=== PATIENT | male | born 1955 | race American Indian/Alaskan Native ===

== ENCOUNTER 2024-05-15 01:02 | Inpatient (IN) | payer MEDICARE, MEDICAID, SELFPAY ==
[2024-05-15] VITALS (56 sets, daily range): BP systolic 76–122; BP diastolic 47–71; PULSE 86–129; RESP 13–21; TEMP 36.6–37.2; O2SAT 91–100; BMI 32.7; BMI 18.4
--- NOTE | 2024-05-15 01:02 | ED_ITS ---
HPI - General Adult General Chief complaint: Skin/Abscess/Foreign Body Stated complaint: painful bedsores Time Seen by Provider: 05/15/24 01:02 Source: patient, RN notes reviewed and old records reviewed Mode of arrival: EMS Limitations: no limitations History of Present Illness HPI narrative: 69-year-old male no reported medical history states he has not seen a physician since the presents with complaint of painful sores on his buttocks and lower back. Patient is cachectic with what appears to be contractures of his lower extremities. States he has not been out of bed for a very long time states his son changes of brief for urination and lift him up and moves him to have bowel movements. ?Patient states he has not had solids and several days has not been interested has been having 1 or 2 bottles of Gatorade each day.? States he was still making urine. Patient states he comes in today because his skin is coming off on his back and buttocks in his painful. He expresses multiple times that he was told his son to leave him alone because he wishes to at home. Patient states he does not have any breathing difficulties has not been vomiting. No reports of new diarrhea or constipation. His main complaint is pain in his sacral area and back. Patient states he has not on any medications. Denies any allergies. Use to smoke. Does not drink any alcohol, no recreational drugs. Lives at home has a son that lives with him. EMS states the house was very dirty and a lot of disarray they will reach out to a PS but also [facility]. They state they saw son at the house but no other family members. Related Data Previous Rx's Medication Instructions Recorded lorazepam 2 mg/mL oral concentrate 0.5 mg (0.25 mL) PO Q1HR PRN 05/23/24 (Lorazepam Intensol) Anxiety #30 mL morphine concentrate 10 mg/0.5 mL 10 mg (0.5 mL) sublingual Q1H PRN 05/23/24 oral syringe (FOR ORAL USE ONLY) Pain, Mild (1-3) #100 ea Allergies Allergy/AdvReac Type Severity Reaction Status Date / Time No Known Drug Allergies Allergy Verified 05/16/24 11:34 Review of Systems Review of Systems ROS Unobtainable: All systems reviewed & are unremarkable except as noted in HPI and below Patient History Social History household members: children Smoking Status: Former smoker Exam Narrative Exam Narrative: GEN: Cachectic male, alert and oriented, patient appears to be in mild distress. Clear speech. HEENT: Atraumatic, pupils are equal round reactive to light, extraocular movements are intact, nares are clear, there is no conjunctival pallor. Throat is clear without any exudates, erythema, tonsillar enlargement or uvular deviation, patient has a dry mucous membranes and tongue. HEART: Regular rate and rhythm without murmur, clicks, rubs. pulses are equal in upper and lower extremities LUNGS:Lungs clear to auscultation, no wheezes, rales, crackles, chest moves symmetrically, no tachypnea ABD:bowel sounds normal, soft, nondistended. Non-tender, no guarding, rebound, rigidity, no masses noted, no hepatosplenomegaly :No CVA tenderness MSCL: Extremities are nontender, atrophy bilateral lower extremities with what appears to be contractures bilateral lower extremities. Patient has full range of motion of upper extremities. NEURO:CN 2-12 intact, sensation normal SKIN: Patient has some small areas of breakdown on the right flank 1 is oozing blood, there is a large DKA tube over the sacral region and perineum. Patient has quite a bit of dried stool in skin his torso back in perineal area. There is a small amount in his hair as well lower extremities. Initial Vital Signs Initial Vital Signs: Vital Signs Temperature 98.7 F 05/15/24 01:04 Pulse Rate 100 H 05/15/24 01:04 Respiratory Rate 20 05/15/24 01:04 Blood Pressure 78/55 L 05/15/24 01:04 Pulse Oximetry 96 05/15/24 01:04 Oxygen Delivery Method Room Air 05/15/24 01:04 Course Orders Ordered: Discontinued Medications Acetaminophen (Acetaminophen 325 Mg Tablet) 650 mg PO Q6H PRN PRN Reason: Fever/Mild Pain (1-3) Last Admin: 05/17/24 22:02 Dose: 650 mg Documented By: Aspirin (Aspirin 81 Mg Chew Tab) 324 mg PO NOW ONE Stop: 05/15/24 05:36 Last Admin: 05/15/24 05:40 Dose: 324 mg Documented By: Dextrose (Dextrose 50 % In Water 25 Gm/50 Ml Syringe) 12.5 gm IV PRN PRN PRN Reason: HYPOGLYCEMIA Last Admin: 05/18/24 08:03 Dose: 12.5 gm Documented By: SKYE Enoxaparin Sodium (Enoxaparin 40 Mg/0.4 Ml Syringe) 40 mg SUBCUT DAILY [facility] Last Admin: 05/20/24 08:39 Dose: 40 mg Documented By: Admin: 05/19/24 09:52 Dose: 40 mg Documented By: Admin: 05/18/24 09:41 Dose: 40 mg Documented By: Admin: 05/17/24 09:03 Dose: 40 mg Documented By: Admin: 05/16/24 08:36 Dose: 40 mg Documented By: Admin: 05/15/24 11:39 Dose: 40 mg Documented By: ANDRIY Fentanyl (Fentanyl 100 Mcg/2 Ml Inj) 50 mcg IV NOW ONE Stop: 05/15/24 01:12 Last Admin: 05/15/24 01:32 Dose: 50 mcg Documented By: MR Heparin Sodium (Porcine) (Heparin 5,000 Unit/Ml Vial) 3,000 unit 60 unit/kg (3000 unit) IV NOW ONE Stop: 05/15/24 04:48 Last Admin: 05/15/24 04:58 Dose: 3,000 unit Documented By: MR Hydromorphone HCl (Hydromorphone 0.5 Mg Inj) 0.5 mg IV Q2H PRN PRN Reason: Pain, Moderate (4-6) Last Admin: 05/22/24 09:16 Dose: 0.5 mg Documented By: Admin: 05/22/24 00:16 Dose: 0.5 mg Documented By: Admin: 05/21/24 07:49 Dose: 0.5 mg Documented By: Admin: 05/20/24 05:29 Dose: 0.5 mg Documented By: Admin: 05/20/24 02:58 Dose: 0.5 mg Documented By: Admin: 05/19/24 15:46 Dose: 0.5 mg Documented By: Admin: 05/19/24 14:15 Dose: 0.5 mg Documented By: Admin: 05/19/24 11:12 Dose: 0.5 mg Documented By: Admin: 05/18/24 22:29 Dose: 0.5 mg Documented By: Admin: 05/18/24 16:14 Dose: 0.5 mg Documented By: Admin: 05/17/24 08:38 Dose: 0.5 mg Documented By: Admin: 05/16/24 07:35 Dose: 0.5 mg Documented By: Admin: 05/15/24 20:07 Dose: 0.5 mg Documented By: Admin: 05/15/24 18:26 Dose: 0.5 mg Documented By: Admin: 05/15/24 14:05 Dose: 0.5 mg Documented By: Admin: 05/15/24 11:39 Dose: 0.5 mg Documented By: ANDRIY Hydromorphone HCl (Hydromorphone 1 Mg Inj) 1 mg IV Q3H PRN PRN Reason: Pain, Severe (7-10) Last Admin: 05/17/24 05:25 Dose: 1 mg Documented By: Admin: 05/17/24 02:46 Dose: 1 mg Documented By: Admin: 05/16/24 23:16 Dose: 1 mg Documented By: Admin: 05/16/24 19:50 Dose: 1 mg Documented By: Admin: 05/16/24 16:39 Dose: 1 mg Documented By: Admin: 05/16/24 13:16 Dose: 1 mg Documented By: Admin: 05/16/24 09:43 Dose: 1 mg Documented By: ANDRIY Hydromorphone HCl (Hydromorphone 1 Mg Inj) 1 mg IV Q2HR PRN PRN Reason: Pain, Moderate (4-6) Last Admin: 05/18/24 04:07 Dose: 1 mg Documented By: Admin: 05/17/24 23:14 Dose: 1 mg Documented By: Admin: 05/17/24 18:49 Dose: 1 mg Documented By: Admin: 05/17/24 17:01 Dose: 1 mg Documented By: Admin: 05/17/24 11:36 Dose: 1 mg Documented By: SONNY Sodium Chloride (Normal Saline 0.9%) 1,000 mls @ 1,000 mls/hr IV BOLUS ONE Stop: 05/15/24 02:10 Last Infusion: 05/15/24 02:46 Dose: Infused Documented By: Admin: 05/15/24 01:26 Dose: 1,000 mls/hr Documented By: MR Piperacillin Sod/Tazobactam (Sod 4.5 gm/ Sodium Chloride) 100 mls @ 200 mls/hr IV NOW ONE Stop: 05/15/24 01:12 Last Infusion: 05/15/24 02:23 Dose: Infused Documented By: Admin: 05/15/24 01:32 Dose: 200 mls/hr Documented By: MR Vancomycin HCl (Vancomycin) 1,250 mg in 250 mls @ 250 mls/hr IV NOW ONE Stop: 05/15/24 02:15 Last Infusion: 05/15/24 03:52 Dose: Infused Documented By: Admin: 05/15/24 02:45 Dose: 250 mls/hr Documented By: MR Sodium Chloride (Normal Saline 0.9%) 1,000 mls @ 1,000 mls/hr IV BOLUS ONE Stop: 05/15/24 03:42 Last Infusion: 05/15/24 03:48 Dose: Infused Documented By: Admin: 05/15/24 02:52 Dose: 1,000 mls/hr Documented By: MR Heparin Sodium/Dextrose (Heparin Drip) 25,000 unit in 500 mls @ 10.17 mls/hr IV CONT JOSUE; Protocol Last Titration: 05/15/24 07:41 Dose: Infused Documented By: RB Co-signed By: SILVER Admin: 05/15/24 04:58 Dose: 9.5 units/kg/hr, 10.17 mls/hr Documented By: Co-signed By: HNG Sodium Chloride (Normal Saline 0.9%) 1,000 mls @ 150 mls/hr IV CONT JOSUE Last Infusion: 05/15/24 14:05 Dose: Infused Documented By: Admin: 05/15/24 05:41 Dose: 150 mls/hr Documented By: MR Piperacillin Sod/Tazobactam (Sod 3.375 gm/ Sodium Chloride) 100 mls @ 25 mls/hr IV Q8H JOSUE Last Admin: 05/18/24 11:24 Dose: 25 mls/hr Documented By: Infusion: 05/18/24 10:19 Dose: Infused Documented By: Admin: 05/18/24 04:07 Dose: 25 mls/hr Documented By: Infusion: 05/18/24 00:35 Dose: Infused Documented By: Admin: 05/17/24 20:35 Dose: 25 mls/hr Documented By: Infusion: 05/17/24 17:35 Dose: Infused Documented By: Admin: 05/17/24 13:28 Dose: 25 mls/hr Documented By: Infusion: 05/17/24 12:08 Dose: Infused Documented By: Infusion: 05/17/24 08:35 Dose: 0 mls/hr Documented By: Infusion: 05/17/24 07:30 Dose: 0 mls/hr Documented By: Admin: 05/17/24 04:40 Dose: 25 mls/hr Documented By: Infusion: 05/17/24 04:16 Dose: Infused Documented By: Admin: 05/16/24 19:51 Dose: 25 mls/hr Documented By: Infusion: 05/16/24 16:34 Dose: Infused Documented By: Admin: 05/16/24 12:18 Dose: 25 mls/hr Documented By: Infusion: 05/16/24 08:32 Dose: Infused Documented By: Admin: 05/16/24 04:16 Dose: 25 mls/hr Documented By: Infusion: 05/16/24 00:36 Dose: Infused Documented By: Admin: 05/15/24 20:05 Dose: 25 mls/hr Documented By: Infusion: 05/15/24 17:36 Dose: Infused Documented By: Admin: 05/15/24 11:36 Dose: 25 mls/hr Documented By: ANDRIY Sodium Chloride (Normal Saline 0.45%) 1,000 mls @ 75 mls/hr IV CONT JOSUE Last Infusion: 05/18/24 14:41 Dose: 75 mls/hr Documented By: Admin: 05/18/24 13:52 Dose: 125 mls/hr Documented By: YAAbbie Infusion: 05/18/24 13:52 Dose: Infused Documented By: Admin: 05/18/24 05:54 Dose: 125 mls/hr Documented By: Infusion: 05/18/24 05:53 Dose: Infused Documented By: Admin: 05/17/24 21:53 Dose: 125 mls/hr Documented By: Infusion: 05/17/24 17:03 Dose: Infused Documented By: Admin: 05/17/24 09:03 Dose: 125 mls/hr Documented By: Infusion: 05/16/24 22:35 Dose: Infused Documented By: Admin: 05/16/24 14:35 Dose: 125 mls/hr Documented By: Infusion: 05/16/24 14:35 Dose: Infused Documented By: Admin: 05/16/24 07:00 Dose: 125 mls/hr Documented By: Infusion: 05/16/24 06:33 Dose: Infused Documented By: Admin: 05/15/24 22:33 Dose: 125 mls/hr Documented By: Infusion: 05/15/24 22:02 Dose: Infused Documented By: Infusion: 05/15/24 17:35 Dose: 125 mls/hr Documented By: Admin: 05/15/24 11:39 Dose: 75 mls/hr Documented By: ANDRIY Vancomycin HCl 1,000 mg/ (Sodium Chloride) 250 mls @ 250 mls/hr IV Q12H [facility] Last Infusion: 05/17/24 04:43 Dose: Infused Documented By: Admin: 05/17/24 02:46 Dose: 250 mls/hr Documented By: Infusion: 05/16/24 17:24 Dose: Infused Documented By: Admin: 05/16/24 15:52 Dose: 250 mls/hr Documented By: Infusion: 05/16/24 04:19 Dose: Infused Documented By: Admin: 05/16/24 03:15 Dose: 250 mls/hr Documented By: Infusion: 05/15/24 17:36 Dose: Infused Documented By: Admin: 05/15/24 15:25 Dose: 250 mls/hr Documented By: CR Sodium Chloride (Normal Saline 0.45%) 1,000 mls @ 125 mls/hr IV CONT JOSUE Last Admin: 05/15/24 17:42 Dose: Not Given Documented By: ANDRIY POTASSIUM CHLORIDE IN WATER (Potassium Cl 10 Meq/100 Ml Dona) 10 meq in 100 mls @ 100 mls/hr IV Q1H [facility] Stop: 05/16/24 12:59 Last Infusion: 05/16/24 14:56 Dose: Infused Documented By: Admin: 05/16/24 13:48 Dose: 100 mls/hr Documented By: Infusion: 05/16/24 13:37 Dose: Infused Documented By: Admin: 05/16/24 12:37 Dose: 100 mls/hr Documented By: Infusion: 05/16/24 12:27 Dose: Infused Documented By: Admin: 05/16/24 11:27 Dose: 100 mls/hr Documented By: Infusion: 05/16/24 11:17 Dose: Infused Documented By: Admin: 05/16/24 10:17 Dose: 100 mls/hr Documented By: Infusion: 05/16/24 09:31 Dose: Infused Documented By: Admin: 05/16/24 08:31 Dose: 100 mls/hr Documented By: Infusion: 05/16/24 08:31 Dose: Infused Documented By: Admin: 05/16/24 07:35 Dose: 100 mls/hr Documented By: ANDRIY Magnesium Sulfate (Magnesium Sulfate) 2 gm in 50 mls @ 25 mls/hr IV NOW ONE Stop: 05/16/24 15:59 Last Infusion: 05/16/24 17:23 Dose: Infused Documented By: CATHI Co-signed By: SO Admin: 05/16/24 14:59 Dose: 25 mls/hr Documented By: CATHI Co-signed By: SO Dextrose (D10w) 100 mls @ 999 mls/hr IV PRN PRN PRN Reason: Hypoglycemia POTASSIUM CHLORIDE IN WATER (Potassium Cl 10 Meq/100 Ml Dona) 10 meq in 100 mls @ 100 mls/hr IV Q1H J[facility] Stop: 05/18/24 14:59 Last Infusion: 05/18/24 14:54 Dose: Infused Documented By: Admin: 05/18/24 13:53 Dose: 100 mls/hr Documented By: Infusion: 05/18/24 13:53 Dose: Infused Documented By: Admin: 05/18/24 13:26 Dose: 100 mls/hr Documented By: Infusion: 05/18/24 12:59 Dose: Infused Documented By: Admin: 05/18/24 11:59 Dose: 100 mls/hr Documented By: Infusion: 05/18/24 11:59 Dose: Infused Documented By: Admin: 05/18/24 11:01 Dose: 100 mls/hr Documented By: SKYE Piperacillin Sod/Tazobactam (Sod 4.5 gm/ Sodium Chloride) 100 mls @ 200 mls/hr IV Q6H JOS[facility] Last Infusion: 05/20/24 12:10 Dose: Infused Documented By: Admin: 05/20/24 11:18 Dose: 200 mls/hr Documented By: Infusion: 05/20/24 04:21 Dose: Infused Documented By: Admin: 05/20/24 02:59 Dose: 200 mls/hr Documented By: Infusion: 05/19/24 21:46 Dose: Infused Documented By: Admin: 05/19/24 21:16 Dose: 200 mls/hr Documented By: Infusion: 05/19/24 16:58 Dose: Infused Documented By: Admin: 05/19/24 16:09 Dose: 200 mls/hr Documented By: Infusion: 05/19/24 10:54 Dose: Infused Documented By: Admin: 05/19/24 09:57 Dose: 200 mls/hr Documented By: Infusion: 05/19/24 03:35 Dose: Infused Documented By: Admin: 05/19/24 03:02 Dose: 200 mls/hr Documented By: Infusion: 05/18/24 21:56 Dose: Infused Documented By: Admin: 05/18/24 21:26 Dose: 200 mls/hr Documented By: Infusion: 05/18/24 17:09 Dose: Infused Documented By: Admin: 05/18/24 14:50 Dose: 200 mls/hr Documented By: SKYE Dextrose/Sodium Chloride (Dextrose 5%-0.9% Ns) 1,000 mls @ 75 mls/hr IV CONT JOSUE Last Admin: 05/20/24 04:10 Dose: 75 mls/hr Documented By: Infusion: 05/19/24 20:19 Dose: Infused Documented By: Admin: 05/19/24 06:59 Dose: 75 mls/hr Documented By: Infusion: 05/19/24 06:59 Dose: Infused Documented By: Admin: 05/18/24 18:01 Dose: 75 mls/hr Documented By: SKYE Potassium Phosphate 45 mmol/ (Sodium Chloride) 515 mls @ 85.833 mls/hr IV NOW ONE Stop: 05/19/24 10:51 Last Admin: 05/19/24 11:45 Dose: 85.833 mls/hr Documented By: LORNA Magnesium Sulfate (Magnesium Sulfate) 2 gm in 50 mls @ 25 mls/hr IV NOW ONE Stop: 05/19/24 12:49 Last Infusion: 05/19/24 13:42 Dose: Infused Documented By: SKYE Co-signed By: JAMES Admin: 05/19/24 11:42 Dose: 25 mls/hr Documented By: LORNA Co-signed By: SKYE Potassium Phosphate 15 mmol/ (Sodium Chloride) 255 mls @ 127.5 mls/hr IV NOW ONE Stop: 05/20/24 11:14 Last Infusion: 05/20/24 12:11 Dose: 127.5 mls/hr Documented By: Admin: 05/20/24 10:31 Dose: 127.5 mls/hr Documented By: EDWARD POTASSIUM CHLORIDE IN WATER (Potassium Cl 10 Meq/100 Ml Dona) 10 meq in 100 mls @ 100 mls/hr IV Q1H [facility] Stop: 05/20/24 13:14 Last Admin: 05/20/24 13:02 Dose: Not Given Documented By: Admin: 05/20/24 13:02 Dose: Not Given Documented By: Admin: 05/20/24 13:02 Dose: Not Given Documented By: SKYE Lorazepam (Lorazepam 2 Mg/Ml Inj) 0.5 mg IV Q4HR PRN PRN Reason: Anxiety Last Admin: 05/21/24 23:21 Dose: 0.5 mg Documented By: Admin: 05/21/24 18:35 Dose: 0.5 mg Documented By: Admin: 05/21/24 06:33 Dose: 0.5 mg Documented By: Admin: 05/20/24 06:25 Dose: 0.5 mg Documented By: Admin: 05/20/24 02:45 Dose: 0.5 mg Documented By: Admin: 05/19/24 14:15 Dose: 0.5 mg Documented By: Admin: 05/15/24 22:34 Dose: 0.5 mg Documented By: MAYNOR Lorazepam (Lorazepam 2 Mg/Ml Oral Dona) 0.5 mg PO Q1HR PRN PRN Reason: Anxiety Lorazepam (Lorazepam 2 Mg/Ml Oral Dona) 0.5 mg PO Q4HR JOS[facility] Last Admin: 05/23/24 12:28 Dose: 0.5 mg Documented By: Admin: 05/23/24 08:45 Dose: 0.5 mg Documented By: Admin: 05/23/24 04:07 Dose: 0.5 mg Documented By: ANDRIY(2) Admin: 05/23/24 00:22 Dose: 0.5 mg Documented By: ANDRIY(2) Admin: 05/22/24 20:56 Dose: 0.5 mg Documented By: Admin: 05/22/24 17:17 Dose: 0.5 mg Documented By: Admin: 05/22/24 14:56 Dose: Not Given Documented By: JANET Magnesium Chloride (Magnesium Chloride 64 Mg Tablet) 128 mg PO NOW ONE Stop: 05/16/24 09:01 Last Admin: 05/16/24 08:42 Dose: Not Given Documented By: ANDRIY Morphine Sulfate (Morphine 10 Mg/0.5 Ml Oral Syringe) 10 mg SL Q1H PRN PRN Reason: Pain, Mild (1-3) Last Admin: 05/22/24 10:31 Dose: 10 mg Documented By: Admin: 05/22/24 09:10 Dose: 10 mg Documented By: Admin: 05/21/24 23:37 Dose: 10 mg Documented By: Admin: 05/21/24 22:41 Dose: 10 mg Documented By: Admin: 05/21/24 16:01 Dose: 10 mg Documented By: Admin: 05/21/24 14:17 Dose: 10 mg Documented By: Admin: 05/21/24 05:54 Dose: 10 mg Documented By: Admin: 05/21/24 00:56 Dose: 10 mg Documented By: Admin: 05/20/24 22:04 Dose: 10 mg Documented By: Admin: 05/20/24 20:42 Dose: 10 mg Documented By: Admin: 05/20/24 16:21 Dose: 10 mg Documented By: Admin: 05/20/24 11:10 Dose: 10 mg Documented By: EDWARD Morphine Sulfate (Morphine 10 Mg/0.5 Ml Oral Syringe) 15 mg PO Q4HR [facility] Last Admin: 05/23/24 12:27 Dose: 15 mg Documented By: Admin: 05/23/24 08:45 Dose: 15 mg Documented By: Admin: 05/23/24 04:07 Dose: 15 mg Documented By: ANDRIY(2) Admin: 05/23/24 00:21 Dose: 15 mg Documented By: ANDRIY(2) Admin: 05/22/24 20:56 Dose: 15 mg Documented By: Admin: 05/22/24 17:16 Dose: 15 mg Documented By: Admin: 05/22/24 14:12 Dose: 15 mg Documented By: JANET Naloxone HCl (Naloxone 0.4 Mg/Ml Vial) 0.2 mg IV Q2MIN PRN PRN Reason: Opiate Reversal Ondansetron HCl (Ondansetron 4 Mg/2 Ml Inj) 4 mg IV NOW ONE Stop: 05/15/24 01:12 Last Admin: 05/15/24 01:32 Dose: 4 mg Documented By: Ondansetron HCl (Ondansetron 4 Mg/2 Ml Inj) 4 mg IV Q8HR PRN PRN Reason: Nausea And Vomiting Oxycodone HCl (Oxycodone Ir 5 Mg Tablet) 5 mg PO Q3H PRN PRN Reason: Pain, Moderate (4-6) Last Admin: 05/17/24 22:02 Dose: 5 mg Documented By: Oxycodone HCl (Oxycodone Ir 5 Mg Tablet) 2.5 mg PO Q3H PRN PRN Reason: Pain, Moderate (4-6) Oxycodone HCl (Oxycodone Ir 5 Mg Tablet) 5 mg PO Q4HR PRN PRN Reason: Pain, Severe (7-10) Pantoprazole Sodium (Pantoprazole 40 Mg Vial) 40 mg IV BID [facility] Last Admin: 05/23/24 08:45 Dose: 40 mg Documented By: Admin: 05/22/24 20:57 Dose: 40 mg Documented By: Admin: 05/22/24 10:31 Dose: 40 mg Documented By: Admin: 05/21/24 21:37 Dose: 40 mg Documented By: Admin: 05/21/24 07:49 Dose: 40 mg Documented By: Admin: 05/20/24 20:42 Dose: 40 mg Documented By: Admin: 05/20/24 08:39 Dose: 40 mg Documented By: Admin: 05/19/24 21:16 Dose: 40 mg Documented By: Admin: 05/19/24 09:52 Dose: 40 mg Documented By: SKYE Potassium Chloride (Potassium Chloride 20 Meq Tab) 40 meq PO Q6H [facility] Stop: 05/17/24 13:31 Last Admin: 05/17/24 15:35 Dose: Not Given Documented By: Admin: 05/17/24 09:11 Dose: 40 meq Documented By: SONNY Potassium Chloride (Potassium Chloride 20 Meq Tab) 40 meq PO Q6H [facility] Stop: 05/17/24 15:16 Last Admin: 05/17/24 15:41 Dose: Not Given Documented By: CS Potassium Chloride (Potassium Chloride 20 Meq Tab) 40 meq PO Q6H [facility] Stop: 05/18/24 15:31 Last Admin: 05/18/24 10:20 Dose: Not Given Documented By: SKYE Scopolamine (Scopolamine 1 Patch) 1 patch TOP Q72H PRN PRN Reason: Secretions Sodium Chloride (Sodium Chloride 0.9% Flush) 10 ml IV PRN PRN PRN Reason: Flush Sodium Chloride (Sodium Chloride 0.9% Flush) 10 ml IV BID [facility] Last Admin: 05/23/24 08:46 Dose: 10 ml Documented By: LDV Vancomycin HCl (Vancomycin Per Pharmacy) 1 request MISC NOW PRN PRN Reason: sacral decubitus infection Vancomycin HCl (Vancomycin Trough) 1 request MISC 1430 ONE Stop: 05/16/24 14:31 Last Admin: 05/16/24 14:59 Dose: Not Given Documented By: TLS Vancomycin HCl (Vancomycin Peak) 1 request MISC 1700 ONE Stop: 05/16/24 17:01 Last Admin: 05/16/24 18:56 Dose: Not Given Documented By: CLP Vital Signs Vital signs: Vital Signs - 8 hr 05/15/24 01:04 05/15/24 01:04 05/15/24 01:04 Temperature 98.7 F Pulse Rate 100 H 100 H Respiratory Rate 20 Blood Pressure 78/55 L 76/54 L Pulse Oximetry 96 95 Oxygen Delivery Method Room Air 05/15/24 01:05 05/15/24 01:05 05/15/24 01:30 Temperature Pulse Rate 100 H Respiratory Rate Blood Pressure 78/55 L 84/58 L Pulse Oximetry 96 Oxygen Delivery Method 05/15/24 01:30 05/15/24 02:19 05/15/24 02:19 Temperature Pulse Rate 98 H 97 H Respiratory Rate 18 18 Blood Pressure 84/50 L Pulse Oximetry 96 97 Oxygen Delivery Method 05/15/24 02:20 05/15/24 02:38 05/15/24 02:39 Temperature Pulse Rate 94 H 96 H Respiratory Rate 17 Blood Pressure 104/59 L Pulse Oximetry 98 98 Oxygen Delivery Method 05/15/24 02:39 05/15/24 02:40 05/15/24 02:50 Temperature Pulse Rate 108 H 96 H 94 H Respiratory Rate 16 16 15 Blood Pressure Pulse Oximetry 98 98 98 Oxygen Delivery Method 05/15/24 03:00 05/15/24 03:00 05/15/24 03:10 Temperature Pulse Rate 97 H 95 H Respiratory Rate 17 17 Blood Pressure 115/69 Pulse Oximetry 99 99 Oxygen Delivery Method 05/15/24 03:20 05/15/24 03:30 05/15/24 03:30 Temperature Pulse Rate 96 H 94 H Respiratory Rate 19 17 Blood Pressure 118/67 Pulse Oximetry 99 98 Oxygen Delivery Method 05/15/24 03:40 05/15/24 03:50 05/15/24 04:00 Temperature Pulse Rate 129 H 94 H Respiratory Rate 19 19 Blood Pressure 122/71 Pulse Oximetry 98 100 Oxygen Delivery Method 05/15/24 04:00 05/15/24 04:10 05/15/24 04:28 Temperature Pulse Rate 127 H 98 H 96 H Respiratory Rate 18 14 Blood Pressure Pulse Oximetry 100 99 98 Oxygen Delivery Method 05/15/24 04:29 05/15/24 04:29 05/15/24 04:30 Temperature Pulse Rate 99 H 96 H Respiratory Rate 14 14 Blood Pressure 101/64 Pulse Oximetry 98 98 Oxygen Delivery Method 05/15/24 04:40 Temperature Pulse Rate 100 H Respiratory Rate 14 Blood Pressure Pulse Oximetry 97 Oxygen Delivery Method Medical Decision Making Lab Data 05/20/24 06:17 05/20/24 06:17 Labs: Lab Results 05/15/24 05/15/24 05/15/24 Range/Units 01:20 03:25 03:46 WBC 9.6 (4.5-11.0) X10^3/uL RBC 2.95 L (4.5-5.9) X10^6/uL Hgb 9.8 L (13.5-17.5) g/dL Hct 28.5 L (41-53) % MCV 96.8 (80-100) fL MCH 33.2 (26-34) PG MCHC 34.3 (30-36) % RDW 14.9 H (11.6-14.8) % Plt Count 211 (150-400) X10^3/uL Neut % (Auto) 76.5 H (50-75) % Lymph % (Auto) 19.1 L (25-40) % [place] % (Auto) 3.5 (3-14) % Eos % (Auto) 0.1 L (2-4) % Baso % (Auto) 0.8 (0-2) % Neut # (Auto) 7400 H (5869-9976) /uL Lymph # (Auto) 1800 (2213-7570) /uL [place] # (Auto) 300 (0-900) /uL Eos # (Auto) 0 (0-450) /uL Baso # (Auto) 100 (0-100) /uL APTT (25.1-36.5) SECONDS Sodium 138 (137-145) mmol/L Potassium 3.7 (3.4-5.1) mmol/L Chloride 105 (98-107) mmol/L Carbon Dioxide 25 (22-32) mmol/L BUN 18 (9-20) mg/dL Creatinine 0.72 (0.66-1.25) mg/dL Estimated GFR > 60 (>60) mL/min BUN/Creatinine Ratio 25.0 H (6-22) Glucose 104 (80-110) mg/dL Lactate 3.0 H 2.0 (0.7-2.1) mmol/L Calcium 8.5 (8.4-10.2) mg/dL Iron 67 (49-181) ug/dL TIBC 124 L (261-462) ug/dL % Saturation 54 H (20-50) % Transferrin 90 L (206-381) mg/dL Ferritin 152 (18-464) ng/mL Total Bilirubin 1.5 H (0.2-1.3) mg/dL AST 45 (17-59) IU/L ALT 31 (<50) IU/L Alkaline Phosphatase 123 (38-126) U/L Total Creatine Kinase 202 H (55-170) U/L Troponin I 0.308 H* 0.318 H* (0.01-0.034) ng/mL Total Protein 7.0 (6.3-8.2) g/dL Albumin 3.2 L (3.5-5.0) g/dL Globulin 3.8 (1.7-4.1) g/dL Albumin/Globulin Ratio 0.8 L (1.0-2.8) Prealbumin 4.0 L (17.6-36.0) mg/dL Prostate Specific Ag 0.708 (0.10-4.00) ng/mL Vitamin B12 986 H (239-931) pg/mL Folate 2.4 L (2.76-20.0) ng/mL Procalcitonin 0.234 (<0.5) ng/mL TSH 3.90 (0.47-4.68) uIU/mL Urine Color Urine Appearance Urine pH (4.5-8.0) Ur Specific [place] (1.000-1.035) Urine Protein (Negative) Urine Glucose (UA) (Negative) g/dL Urine Ketones (NEGATIVE) Urine Occult Blood (Negative) Urine Nitrate (Negative) Urine Bilirubin (NEGATIVE) Ur Bilirubin Confirm (Negative) Urine Urobilinogen (0.2) E.U./dL Ur Leukocyte Esterase (NEGATIVE) Urine RBC (0-5/HPF) Urine WBC (0-5/HPF) Ur Squamous Epith Cells (0-5/HPF) Other Crystals Urine Bacteria (None) Ur Culture Indicated? Vol Urine Centrifuged 05/15/24 05/15/24 Range/Units 04:12 05:00 WBC (4.5-11.0) X10^3/uL RBC (4.5-5.9) X10^6/uL Hgb (13.5-17.5) g/dL Hct (41-53) % MCV (80-100) fL MCH (26-34) PG MCHC (30-36) % RDW (11.6-14.8) % Plt Count (150-400) X10^3/uL Neut % (Auto) (50-75) % Lymph % (Auto) (25-40) % [place] % (Auto) (3-14) % Eos % (Auto) (2-4) % Baso % (Auto) (0-2) % Neut # (Auto) (8618-0622) /uL Lymph # (Auto) (9459-8945) /uL [place] # (Auto) (0-900) /uL Eos # (Auto) (0-450) /uL Baso # (Auto) (0-100) /uL APTT 31 (25.1-36.5) SECONDS Sodium (137-145) mmol/L Potassium (3.4-5.1) mmol/L Chloride (98-107) mmol/L Carbon Dioxide (22-32) mmol/L BUN (9-20) mg/dL Creatinine (0.66-1.25) mg/dL Estimated GFR (>60) mL/min BUN/Creatinine Ratio (6-22) Glucose (80-110) mg/dL Lactate (0.7-2.1) mmol/L Calcium (8.4-10.2) mg/dL Iron (49-181) ug/dL TIBC (261-462) ug/dL % Saturation (20-50) % Transferrin (206-381) mg/dL Ferritin (18-464) ng/mL Total Bilirubin (0.2-1.3) mg/dL AST (17-59) IU/L ALT (<50) IU/L Alkaline Phosphatase (38-126) U/L Total Creatine Kinase (55-170) U/L Troponin I (0.01-0.034) ng/mL Total Protein (6.3-8.2) g/dL Albumin (3.5-5.0) g/dL Globulin (1.7-4.1) g/dL Albumin/Globulin Ratio (1.0-2.8) Prealbumin (17.6-36.0) mg/dL Prostate Specific Ag (0.10-4.00) ng/mL Vitamin B12 (239-931) pg/mL Folate (2.76-20.0) ng/mL Procalcitonin (<0.5) ng/mL TSH (0.47-4.68) uIU/mL Urine Color Dark yellow Urine Appearance Cloudy Urine pH 5.5 (4.5-8.0) Ur Specific [place] 1.020 (1.000-1.035) Urine Protein 1+ H (Negative) Urine Glucose (UA) Negative (Negative) g/dL Urine Ketones Negative (NEGATIVE) Urine Occult Blood 3+ H (Negative) Urine Nitrate Positive H (Negative) Urine Bilirubin 1+ H (NEGATIVE) Ur Bilirubin Confirm Positive H (Negative) Urine Urobilinogen 1.0 (0.2) E.U./dL Ur Leukocyte Esterase 2+ H (NEGATIVE) Urine RBC 30-100/hpf H (0-5/HPF) Urine WBC >100/hpf H (0-5/HPF) Ur Squamous Epith Cells 0-1 /hpf (0-5/HPF) Other Crystals Bilirubin Urine Bacteria Many (>30) H (None) Ur Culture Indicated? Specimen cultured Vol Urine Centrifuged 10ml (spun) ECG Data Attestation: I personally reviewed and interpreted this ECG as follows: Interpretation: Undetermined rhythm but appears regular, rate of 111 OK 120 QRS is 62 QTC of 625 although there maybe some this interpretation as patient has appears to be quite a bit of artifact. Multiple attempts at EKG. [facility] Narrative Medical decision making narrative: 69-year-old male no reported medical issues but has not seen a doctor in several decades patient indicates that he has not walked in quite some time and has what appears to be contractures of his lower extremities he appears cachectic, quite dehydrated and presents today with complaint of his skin sloughing off from his decubitus area and causing pain. Per EMS the room with the patient was in as well as the house is in quite a bit of disarray and unclean. Patient was hypotensive, tachycardic has not been hypoxic is afebrile suspect potential developing infection in his TCU but also significant dehydration based on his exam as well as malnutrition. Patient indicates that he would be DNR/DNI but he was okay with labs, imaging and workup as well as antibiotics and fluids. He was alert, appears to be able to give appropriate history and states his son does help him but he has also been telling his son not to help him to keep him away so he can at home. We discussed there are options with the home health care has been individuals can be made comfortable as well as being kept clean for end of life care within their own home he expresses that he didn't realize that. APS contacted by myself at [phone] for report.? Left voicemail with reporting service for patient.? Labs labs show a normal white count hemoglobin of 9.8 platelets of 211. Electrolytes are appropriate creatinine 0.72 BUN 18, glucose is 104 lactate 3 bilirubin is 1.5 AST ALT are normal CK is 202, troponin 0.308 with a procalcitonin of 0.234. Troponin was repeated EKG rate 111, undetermined rhythm but appears regular prolonged QT but some of this maybe secondary to artifact. No ST elevation or depression. Multiple attempts with the EKG. Chest Xray is negative CT abdomen pelvis dependent atelectasis gallbladder distended but otherwise unremarkable liver within normal limits bilateral renal cysts 1 in each kidney, maybe superficial decubitus ulcer in sacral coccygeal region. No bony destructive changes noted soft tissue edema and inflammation within subcutaneous fat some soft tissue edema inflammation seen adjacent to the ischium. CT angio chest heart size normal RV LV ratio normal thoracic aorta normal no acute PE tree-in-bud opacities primarily in the lower lobes with scattered areas in the upper lobes atelectasis/pneumonia at the lung bases. Patient was given fluids, nausea and pain medication in order to make him more comfortable to clean him and his wounds. Patient was hypotensive received a L of fluids had improvement and seems stay fluid responsive he looks very dry on physical exam additional fluids, patient was covered with Zosyn and vancomycin as he has quite a few decubitus and wounds on his skin he was afebrile. CT imaging shows possible pneumonia versus bronchiolitis he has no respiratory symptoms no chest pain or pressure but broad-spectrum coverage include this. Patient's labs are better than I would expect based on his physical appearance. He was anemic but unclear the onset of this. His electrolytes BUN and creatinine are appropriate glucose is 104 his lactate was elevated at 3 but it was too on repeat bilirubin is elevated at 1.5 but LFTs are normal. Troponin 0.308 did trend upwards little bit to 0.318. Protocol was 0.234. Patient had urinary retention and is nitrate positive, positive for bilirubin 30-100 RBCs leuks are 2+ white cells or 100, many bacteria was sent for culture. Wound culture was also sent. Patient continued on fluids was started on aspirin and heparin for potential NSTEMI did not have any ST elevation on his EKG. Spoke with Dr. Estrada from cardiology at [facility], does not think patient needs cath emergently or transfer. Would likely not anticoagulate. Asks I can discuss with my hospitalist. If they are unwilling to keep to call back. Heparin d/c'd. Spoke with Dr. Horton tele hospitalist defers to day hospitalist but states could likely stay. Reviewed recommendations from cardiology. Spoke with Dr. Harvey who kindly accepts. Critical Care Time Critical Care Time Critical Care Time: Yes Total Critical Care Time: 45 Attestation: The high probability of a clinically significant, sudden or life threatening deterioration of the cardiac and pulmonary system(s) required my full and direct attention, intervention and personal management. The aggregate critical care time was [--] minutes. This time is in addition to time spent performing reported procedures but includes the following: [x] Data Review and interpretation [x] Patient assessment and monitoring of vital signs [x] Documentation [x] Medication orders and management Discharge Plan Departure Patient Disposition: Admitted As Inpatient Clinical Impression: Decubitus ulcer of sacral area, Cachectic, Dehydration, Acute UTI, Urinary retention, Non-STEMI (non-ST elevated myocardial infarction), Pneumonia Admit Date/Time: 05/15/24 08:27 Admit Provider: Jose Harvey V
--- NOTE | 2024-05-15 01:11 | DI.RAD.S_ITS ---
PROCEDURE: XR CHEST 1V INDICATIONS: sacral decub, skin breakdown, ? osteo TECHNIQUE: One view of the chest was acquired. COMPARISON: [facility], CT, CT HEAD/BRAIN WO CON, 05/15/2024, 7:36. [facility], CT, CT ANGIO CHEST PE PROTOCOL, 05/15/2024, 4:23. [facility], CT, CT ABDOMEN PELVIS W CON, 05/15/2024, 2:08. FINDINGS: Surgical changes and devices: None. Lungs and pleura: On this semiupright portable chest examination, no large pneumothorax or large pleural effusions are seen. No focal infiltrates are seen. Low lung volumes are noted. This causes a crowded appearance to the lung markings and limits evaluation. Mediastinum: The cardiac contours are within normal limits. The aorta demonstrates calcification and tortuosity. Bones and chest wall: No suspicious bony lesions. Age-appropriate bony degenerative changes are seen. Overlying soft tissues appear unremarkable. IMPRESSION: Clear lungs. Note: No significant discrepancy from the preliminary report. Dictated by: Cash Thakkar M.D. on 05/15/2024 at 8:28 Approved by: Cash Thakkar M.D. on 05/15/2024 at 8:29
--- NOTE | 2024-05-15 01:11 | DI.CT.S_ITS ---
PROCEDURE: CT ABDOMEN PELVIS W CON INDICATIONS: sacral decub, skin breakdown, ? osteo TECHNIQUE: After the administration of intravenous contrast, axial sections acquired from the lung bases to the pubic symphysis. Coronal and sagittal reformats were performed. For radiation dose reduction, the following was used: automated exposure control, adjustment of mA and/or kV according to patient size. COMPARISON: [facility], CT, CT HEAD/BRAIN WO CON, 05/15/2024, 7:36. [facility], CT, CT ANGIO CHEST PE PROTOCOL, 05/15/2024, 4:23. [facility], CR, XR CHEST 1V, 05/15/2024, 2:28. FINDINGS: Image quality: Diagnostic. Lower Chest: Mild dependent atelectasis versus scarring can be seen. ABDOMEN: Liver: No solid mass. Gallbladder: No radiopaque gallstones or wall thickening. Biliary ducts: No biliary dilation. Pancreas: No ductal dilation. Spleen: Size is within normal limits. Adrenal Glands: No adrenal nodules. Kidneys and Ureters: No hydronephrosis. No solid mass. No complex renal cystic lesion which requires follow up. Stomach and Bowel: Normal colonic caliber, without significant wall thickening. No dilated loops of small bowel are seen. Peritoneum: No abnormal intraperitoneal fluid. No free air. Ventral Wall: No significant ventral hernia. Abdominal Nodes: No retroperitoneal or mesenteric adenopathy by size criteria. Vessels: Aorta and inferior vena cava are normal in size. Incidental note is made of a circumaortic left renal vein. PELVIS: Pelvic Organs: Unremarkable. Bladder: No bladder wall thickening, accounting for underdistention. Pelvic Nodes: No enlarged lymph nodes. Miscellaneous: No inguinal hernias are seen. In this patient with this given history, scrutiny is given to parasacral region. There is soft tissue hyperemia seen with inflammatory change. No soft tissue gas can be seen. No soft tissue abscess. No findings of sacral osteomyelitis are seen. Similar inflammatory change can be seen overlying the left ischial tuberosity, yet without soft tissue gas or abscess. No cristóbal bony osteomyelitis. Bones: No aggressive osseous abnormality. L4-L5 degenerative change is seen, with bony fusion. Several levels of remote compression deformity can be seen. IMPRESSION: Focal soft tissue inflammatory change seen adjacent to the sacrum as well as adjacent to the left ischial tuberosity. No soft tissue gas or abscess is seen at this time. No cristóbal findings of osteomyelitis. Additional findings: Several remote spinal compression deformities Focal L4-L5 degenerative change, with fusion Note: No significant discrepancy from the preliminary report. Dictated by: Cash Thakkar M.D. on 05/15/2024 at 8:22 Approved by: Cash Thakkar M.D. on 05/15/2024 at 8:27
[2024-05-15] MEDS: SODIUM CHLORIDE 0.9% 1,000 ML 1000 ML IV ×2 (01:26→02:52)
[2024-05-15] MEDS: PIPERACILLIN/TAZO 4.5 GM in SODIUM CHLORIDE 0.9% 100 ML IV (01:32)
[2024-05-15] MEDS: fentaNYL 100 MCG/2 ML INJ 50 MCG IV (01:32)
[2024-05-15] MEDS: ONDANSETRON 4 MG/2 ML INJ IV (01:32)
--- NOTE | 2024-05-15 01:35 | EKG_ITS ---
[facility] [address] [place] [address] Test Date: 2024-05-15 Pat Name: Antony Kearney Department: [facility] Room: Gender: Male Director Of Purchasing: ARLENE : 1955 Requested By: Order Number: [id number] Reading MD: Stanford Padilla MD Measurements Intervals [place] Rate: 111 P: 68 CT: 120 QRS: 91 QRSD: 62 T: 58 QT: 460 QTc: 625 Interpretive Statements Critical Test Result: Long QTc Undetermined rhythm, due to significant baseline artifact Rightward axis Inferior infarct , age undetermined Electronically Signed On 05-15-2024 8:49:43 PST by Stanford Padilla MD
[2024-05-15 01:44] LABS: Add Manual Diff / Slide Review NO; Basophils Absolute Auto 100 /uL (0-100); Basophils Percent Auto 0.8 % (0-2); Eosinophils Absolute Auto 0 /uL (0-450); Eosinophils Percent Auto 0.1 % (2-4); Hematocrit 28.5 % (41-53); Hemoglobin 9.8 g/dL (13.5-17.5); Lymphocytes Absolute Auto 1800 /uL (1100-4500); Lymphocytes Percent Auto 19.1 % (25-40); Mean Corpuscular HGB Conc 34.3 % (30-36); Mean Corpuscular Hemoglobin 33.2 PG (26-34); Mean Corpuscular Volume 96.8 fL (80-100); Monocytes Absolute Auto 300 /uL (0-900); Monocytes Percent Auto 3.5 % (3-14); Neutrophils Absolute Auto 7400 /uL (1500-7000); Neutrophils Percent Auto 76.5 % (50-75); Platelet Count 211 X10^3/uL (150-400); Red Blood Cell Count 2.95 X10^6/uL (4.5-5.9); Red Cell Distribution Width 14.9 % (11.6-14.8); White Blood Cell Count 9.6 X10^3/uL (4.5-11.0)
[2024-05-15 01:55] LABS: Alanine Aminotransferase 31 IU/L (<50); Albumin 3.2 g/dL (3.5-5.0); Albumin Globulin Ratio 0.8 (1.0-2.8); Alkaline Phosphatase 123 U/L (38-126); Aspartate Aminotransferase 45 IU/L (17-59); Bilirubin Total 1.5 mg/dL (0.2-1.3); Blood Urea Nitrogen 18 mg/dL (9-20); Calcium 8.5 mg/dL (8.4-10.2); Carbon Dioxide 25 mmol/L (22-32); Chloride 105 mmol/L (98-107); Creatine Kinase 202 U/L (55-170); Estimated Glomerular Filt Rate > 60 mL/min (>60); Globulin 3.8 g/dL (1.7-4.1); Glucose 104 mg/dL (80-110); HEMOLYSIS 18 (0-50); Potassium 3.7 mmol/L (3.4-5.1); Sodium 138 mmol/L (137-145)
[2024-05-15 02:12] LABS: Procalcitonin 0.234 ng/mL (<0.5)
--- NOTE | 2024-05-15 02:22 | PC.NURSE ---
pt was incontinent provided geovani care and new brief, warm blankets provided
[2024-05-15 02:30] LABS: Troponin I 0.308 ng/mL (0.01-0.034)
--- NOTE | 2024-05-15 02:30 | PC.NURSE ---
Critical trop- 0.308. Dr. Campbell made aware.
--- NOTE | 2024-05-15 02:35 | PC.WOUNDPHOT ---
wounds on back, coccyx and back of legs
--- NOTE | 2024-05-15 02:37 | PC.NURSE ---
Pills found in groin
--- NOTE | 2024-05-15 02:40 | PC.NURSE ---
Condition of pt's feet upon arrival
[2024-05-15] MEDS: VANCOMYCIN 1,250 MG/250 ML PIGGYBACK 250 MG IV (02:45)
[2024-05-15 03:14] LABS: Reflexed Lactate in 2 Hours Y
[2024-05-15 04:03] LABS: Troponin I 0.318 ng/mL (0.01-0.034)
--- NOTE | 2024-05-15 04:03 | DI.CT.S_ITS ---
PROCEDURE: CT ANGIO CHEST PE PROTOCOL INDICATIONS: + trop, no chest, no shortness of breath, bed bound, please evaluate for pulmonary embolism TECHNIQUE: After the administration of intravenous contrast, 2 mm thick sections acquired from the pulmonary apices to the posterior costophrenic angles. 3-dimensional maximum intensity projection (MIP) coronal and sagittal reformats were then acquired through the thorax. For radiation dose reduction, the following was used: automated exposure control, adjustment of mA and/or kV according to patient size. COMPARISON: [facility], CT, CT HEAD/BRAIN WO CON, 05/15/2024, 7:36. [facility], CR, XR CHEST 1V, 05/15/2024, 2:28. [facility], CT, CT ABDOMEN PELVIS W CON, 05/15/2024, 2:08. FINDINGS: Image quality: Diagnostic. Pulmonary arteries: Pulmonary arteries are normal in size, and demonstrate no intraluminal filling defects to suggest central pulmonary embolism. Lower Neck: No enlarged lymph nodes. Thyroid: No thyroid nodules which require sonographic follow up, per consensus guidelines. Axillae: No enlarged lymph nodes. Chest Wall: Unremarkable. Bones: Remote appearing T11 and T12 compression deformities are seen. An L2 compression deformity is also partially seen. Age-appropriate bony degenerative changes are seen. Lungs and Pleura: Atelectasis and tree-in-bud type opacity can be seen involving the lung bases, left worse than right. No focal lung consolidations can be seen. No pneumothorax or pleural effusions are seen. Heart: Heart size is normal. No pericardial effusion. Thoracic Vessels: No aortic aneurysm. Mediastinum and Diana: No enlarged lymph nodes. Esophagus: No wall thickening. No hiatal hernia. Upper Abdomen: Visualized upper abdomen solid organs and bowel loops appear normal. IMPRESSION: No pulmonary embolus. Tree-in-bud type opacity can be seen involving the lung bases, left worse than right. Chronic infection is suspected. Additional findings: Remote appearing T11, T12, and L2 compression deformities Note: No significant discrepancy from the preliminary report. Dictated by: Cash Thakkar M.D. on 05/15/2024 at 8:43 Approved by: Cash Thakkar M.D. on 05/15/2024 at 8:49
[2024-05-15] MEDS: HEPARIN DRIP 25,000 UNIT/500 ML IV.SOLN 10.17 UNIT IV (04:58)
[2024-05-15] MEDS: HEPARIN 5,000 UNIT/ML VIAL 3000 UNIT IV (04:58)
[2024-05-15 05:06] LABS: Appearance Urine UA CLOUDY; Bilirubin Urine UA 1+ (NEGATIVE); Glucose Urine UA NEGATIVE (Negative); Ketones Urine UA NEGATIVE (NEGATIVE); Leukocyte Esterase Urine UA 2+ (NEGATIVE); Nitrite Urine UA POSITIVE (Negative); Occult Blood Urine UA 3+ (Negative); Protein Urine UA 1+ (Negative); pH Urine UA 5.5 (4.5-8.0)
[2024-05-15 05:09] LABS: Color Urine UA Dark Yellow
[2024-05-15 05:11] LABS: Ictotest Urine Positive (Negative); Urine Volume 10mL (spun)
[2024-05-15 05:12] LABS: RBC Urine 30-100/HPF (0-5/HPF); WBC Urine >100/HPF (0-5/HPF)
[2024-05-15 05:13] LABS: Bacteria Urine Many (>30); Squamous Epithelial Cell Urine 0-1 /HPF (0-5/HPF)
[2024-05-15 05:16] LABS: Culture Indicated Urine Specimen Cultured; Other Crystals Urine Bilirubin
[2024-05-15 05:17] LABS: PTT Partial Thromboplastin Tim 31 SECONDS (25.1-36.5)
[2024-05-15] MEDS: ASPIRIN 81 MG CHEW TAB 324 MG PO (05:40)
[2024-05-15] MEDS: SODIUM CHLORIDE 0.9% 1,000 ML 150 ML IV (05:41)
--- NOTE | 2024-05-15 07:28 | DI.CT.S_ITS ---
PROCEDURE: CT HEAD/BRAIN WO CON INDICATIONS: not walking TECHNIQUE: Noncontrast 4.5 mm thick angled axial sections acquired from the foramen magnum to the vertex, with coronal and sagittal reformats. For radiation dose reduction, the following was used: automated exposure control, adjustment of mA and/or kV according to patient size. COMPARISON: None. FINDINGS: Image quality: Diagnostic. CSF spaces: Basal cisterns are patent. No extra-axial fluid collections. The ventricles are symmetric in size and shape. Brain: No intracranial bleeds or masses. There is cerebral volume loss for age, with resultant ventricular and sulcal prominence. There are periventricular and deep white matter chronic small vessel ischemic changes. There is intracranial internal carotid artery atherosclerosis. Skull and face: Calvarium and visualized facial bones appear intact, without suspicious lesions. Sinuses: Visualized sinuses and mastoids are clear. IMPRESSION: 1. CT head without acute intracranial abnormalities or acute calvarial fractures. 2. Age-related senescent changes and sequela of chronic small vessel ischemic disease. Dictated by: Uziel Hurst M.D. on 05/15/2024 at 8:01 Approved by: Uziel Hurst M.D. on 05/15/2024 at 8:02
--- NOTE | 2024-05-15 09:33 | PC.NURSE ---
This RN with assistance of BRUSH OR BROOM CUTTER assisted patient from left hip to right hip Patient under pads changed. Serosanguinous drainage from all buttock wounds noted. Patient propped on pillow behind padding to support right hip. Wounds open to air.
--- NOTE | 2024-05-15 11:07 | DI.ECHO.S_ITS ---
[facility]+ [facility] : : [address] : : [place] : : [id number] : : Phone: [phone] Echocardiogram Report + + :Name: MIMI MEI Study Date: 05/16/2024 Height: 67 in : :Hospital ReadingLocation: Weight: 118 lb: : Gender: Male BSA: 1.6 m2 : :: 1955 Age: 69 yrs : :Reason For Study: MYOCARDIAL INFARCTION : :Ordering Physician: RAMÓN, : :CASSIUS Performed By: Suze Fowler : :Referring: CASSIUS MELGAR : + + Interpretation Summary The left ventricular cavity is small. The ejection fraction is estimated to be 60-65%. There has been no significant change since the previous exam. The interventricular septum is flattened, consistent with a right ventricular pressure/volume condition. The right ventricle is moderately dilated. Right ventricular systolic function is moderately reduced. Right ventricular systolic pressure is estimated to be 26 mmHg plus the clinically estimated CVP which cannot be estimated on this exam. The left atrium grossly appears normal in size. The aortic root is normal size. No significant valvular heart disease. Since 10/30/2012, there is a significant increased in size of RV chamber and RV systolic function has significantlyh decreased. Consider PE evaluation if not yet completed. Procedure: A two-dimensional transthoracic echocardiogram with color flow and Doppler was performed. The study quality was technically difficult. Comparison is made with the echocardiogram of 10/30/2012. The patient was in sinus rhythm with heart rates between 87-93 bpm during the exam. Left Ventricle: The left ventricular cavity is small. There is normal left ventricular wall thickness. The ejection fraction is estimated to be 60-65%. There has been no significant change since the previous exam. The interventricular septum is flattened, consistent with a right ventricular pressure/volume condition. Diastolic function could not be accurately assessed due to unobtainable data. Right Ventricle: The right ventricle is moderately dilated. Right ventricular systolic function is moderately reduced. Atria: The left atrium grossly appears normal in size. The right atrium is mildly dilated. There is no Doppler evidence for an interatrial shunt. Mitral Valve: The mitral valve leaflets appear mildly thickened, but open well. There is no mitral regurgitation noted. Aortic Valve: The aortic valve is trileaflet. The aortic valve opens well. There is no aortic valve stenosis. No aortic regurgitation is present. Tricuspid Valve: The tricuspid valve leaflets are thin and pliable. There is mild tricuspid regurgitation. Right ventricular systolic pressure is estimated to be 26 mmHg plus the clinically estimated CVP which cannot be estimated on this exam. Pulmonic Valve: The pulmonic valve is not well visualized. Great Vessels: The aortic root is normal size. The ascending aorta could not be visualized. The inferior vena cava was not well visualized. Pericardium/ Pleura There is no pericardial effusion. There is no pleural effusion. MMode/2D Measurements & Calculations LVIDd: 3.3 cm LVOT diam: 2.0 cm LVIDs: 2.3 cm Ao root diam: 3.1 cm FS: 30.0 % Ao Arch Diam (Prox Trans): 2.8 cm EPSS: 0.60 cm IVSd: 0.63 cm LVPWd: 0.64 cm LV quiroz. diameter/BSA (cm/m^2): 2.0 LV sys. diameter/BSA (cm/m^2): 1.4 LA dimension: 3.4 cm RA long axis: 4.9 cm LA A4 area: 10.8 cm2 RA area: 19.8 cm2 LA length (vol): 3.8 cm RA vol: 67.1 ml RA : 41.6 ml/m2 RVD1 (basal): 3.3 cm RVD2 (mid): 3.1 cm TAPSE: 2.4 cm Doppler Measurements & Calculations Ao V2 max: 84.9 cm/sec LVOT Max Nabil: 57.7 cm/sec Ao V2 mean: 63.5 cm/sec LV V1 max P.3 mmHg Ao max P.9 mmHg LV V1 VTI: 11.7 cm Ao mean P.8 mmHg MALAIKA(I,D): 2.2 cm2 Ao V2 VTI: 16.0 cm MALAIKA(V,D): 2.1 cm2 sev ratio: 0.73 MALAIKA indexed to BSA (cm^2/m^2): 1.4 Med Peak E' Nabil: 6.6 cm/sec TR max nabil: 253.1 cm/sec Lat Peak E' Nabil: 6.6 cm/sec TR max P.6 mmHg SV(LVOT): 35.4 ml Reading Physician:08:48 AM
--- NOTE | 2024-05-15 11:08 | P.HP_ITS ---
History of Present Illness History of Present Illness Date Patient Seen: 05/15/24 Time Patient Seen: 10:20 Chief complaint: painful bedsores Narrative: 69-year-old man who has not seen a primary care provider since the was brought by paramedics to the emergency department due to complaint of painful sores on his buttocks and lower back. He states he has not gotten out of bed for several months due to chronic arthritic pain, and is cared for by his son who helps with position changes and getting him up to have bowel movements and urinate. He has been drinking fluid but eaten little for the past few days. He has told his son that he wishes to to and wishes to be left alone. He does not take any medications, denies alcohol, tobacco or drug use. Per the emergency department report EMS stated that the house was dirty in disarray. [facility], [facility] Social History Smoking Status: Former smoker Meds Home Medications and Allergies Home Medications Medication Instructions Recorded Confirmed Type No Known Home Medications 05/15/24 05/15/24 History Allergies Allergy/AdvReac Type Severity Reaction Status Date / Time No Known Allergies Allergy Uncoded 07/08/17 12:21 Review of Systems Review of Systems ROS: Yes All systems reviewed with the patient and are negative except as otherwise documented Exam Vital Signs (past 8 hours): - 05/15/24 03:10 05/15/24 03:20 05/15/24 03:30 Pulse Rate 95 H 96 H Respiratory Rate 17 19 Blood Pressure 118/67 Pulse Oximetry 99 99 05/15/24 03:30 05/15/24 03:40 05/15/24 03:50 Pulse Rate 94 H 129 H 94 H Respiratory Rate 17 19 19 Blood Pressure Pulse Oximetry 98 98 100 05/15/24 04:00 05/15/24 04:00 05/15/24 04:10 Pulse Rate 127 H 98 H Respiratory Rate 18 14 Blood Pressure 122/71 Pulse Oximetry 100 99 05/15/24 04:28 05/15/24 04:29 05/15/24 04:29 Pulse Rate 96 H 99 H Respiratory Rate 14 Blood Pressure 101/64 Pulse Oximetry 98 98 05/15/24 04:30 05/15/24 04:40 05/15/24 04:50 Pulse Rate 96 H 100 H 97 H Respiratory Rate 14 14 17 Blood Pressure Pulse Oximetry 98 97 98 05/15/24 05:00 05/15/24 05:00 05/15/24 05:10 Pulse Rate 121 H 101 H Respiratory Rate 20 16 Blood Pressure 110/61 Pulse Oximetry 97 98 05/15/24 05:20 05/15/24 05:30 05/15/24 05:30 Pulse Rate 95 H 101 H Respiratory Rate 18 14 Blood Pressure 87/48 L Pulse Oximetry 98 95 05/15/24 05:31 05/15/24 05:31 05/15/24 05:40 Pulse Rate 97 H 90 Respiratory Rate 17 17 Blood Pressure 81/48 L Pulse Oximetry 96 95 05/15/24 05:50 05/15/24 06:00 05/15/24 06:00 Pulse Rate 96 H 100 H Respiratory Rate 13 16 Blood Pressure 78/52 L Pulse Oximetry 97 96 05/15/24 06:10 05/15/24 06:20 05/15/24 06:30 Pulse Rate 92 H 93 H Respiratory Rate 17 14 Blood Pressure 95/54 L Pulse Oximetry 96 96 05/15/24 06:30 05/15/24 06:40 05/15/24 07:00 Pulse Rate 96 H 94 H 95 H Respiratory Rate 18 18 18 Blood Pressure Pulse Oximetry 96 97 97 05/15/24 07:00 05/15/24 07:10 05/15/24 07:20 Pulse Rate 93 H 96 H Respiratory Rate 17 17 Blood Pressure 99/58 L Pulse Oximetry 97 98 05/15/24 07:30 05/15/24 07:30 05/15/24 07:49 Pulse Rate 97 H 99 H Respiratory Rate 19 19 Blood Pressure 93/51 L Pulse Oximetry 97 98 05/15/24 07:50 05/15/24 08:00 05/15/24 08:10 Pulse Rate 97 H 94 H 93 H Respiratory Rate 19 19 18 Blood Pressure Pulse Oximetry 98 97 97 05/15/24 08:20 05/15/24 08:30 05/15/24 08:40 Pulse Rate 93 H 94 H 93 H Respiratory Rate 15 16 19 Blood Pressure Pulse Oximetry 97 97 97 05/15/24 08:50 05/15/24 09:00 05/15/24 09:10 Pulse Rate 96 H 100 H 96 H Respiratory Rate 17 19 20 Blood Pressure Pulse Oximetry 96 95 96 05/15/24 09:12 05/15/24 09:12 05/15/24 09:20 Pulse Rate 97 H 97 H Respiratory Rate 20 19 Blood Pressure 93/54 L Pulse Oximetry 96 96 05/15/24 09:30 05/15/24 09:30 05/15/24 09:40 Pulse Rate 97 H 97 H Respiratory Rate 21 19 Blood Pressure 85/50 L Pulse Oximetry 96 98 05/15/24 09:50 Pulse Rate 96 H Respiratory Rate 17 Blood Pressure Pulse Oximetry 97 Oxygen Delivery Method Room Air Narrative Exam Narrative: GENERAL: This is a frail cachectic male, in no apparent distress. HEAD: Atraumatic. Normocephalic. No temporal or scalp tenderness. Bitemporal wasting. EYES: Pupils equal round and reactive. Extraocular motions intact. No scleral icterus. No injection or drainage. ENT: Mucous membranes pink and dry. NECK: Trachea midline. No JVD, bruits or lymphadenopathy. Supple, nontender, no meningeal signs. CARDIOVASCULAR: Regular rate and rhythm without murmurs, gallops, or rubs. RESPIRATORY: Clear to auscultation. GASTROINTESTINAL: Abdomen soft, non-tender, nondistended. EXTREMITIES: No clubbing, cyanosis, or edema. BACK: Nontender without deformity or crepitance. No flank tenderness. NEUROLOGIC: Alert, oriented, speech fluent, full upper motor strength, able to move lower extremities in bed but otherwise 2/5 strength, with flexion contractures and muscle wasting of the upper and lower leg muscles, no elicited patellar reflexes or Achilles. DERMATOLOGIC: Multiple ulcerations on proximal posterior thighs and sacral area, measuring 2-3 cm up to 7-9 cm on the sacrum, with visible subcutaneous tissue. See photo documentation in chart Objective ECG Impression: Significant baseline artifact, regular tachycardia at 111 beats per minute, inferior Q-waves, no acute ST segment changes or ischemia evident. Imaging *: Radiologist's impression: 1. Chest x-ray 05/15/2024: Clear lungs. 2. Abdomen pelvis CT 05/15/2024: Focal soft tissue inflammatory change seen adjacent to the sacrum as well as adjacent to the left ischial tuberosity. No soft tissue gas or abscess is seen at this time. No cristóbal findings of osteomyelitis. Additional findings: Several remote spinal compression deformities Focal L4-L5 degenerative change, with fusion 3. Chest CT angiography 05/15/2024: No pulmonary embolus. Tree-in-bud type opacity can be seen involving the lung bases, left worse than right. Chronic infection is suspected Additional findings: Remote appearing T11, T12, and L2 compression deformities 4. Head CT 05/15/2024: 1. CT head without acute intracranial abnormalities or acute calvarial fractures. 2. Age-related senescent changes and sequela of chronic small vessel ischemic disease. Labs 05/15/24 01:20 05/15/24 01:20 Labs: Laboratory Results - last 24 hr 05/15/24 05/15/24 05/15/24 01:20 03:25 04:12 WBC 9.6 RBC 2.95 L Hgb 9.8 L Hct 28.5 L MCV 96.8 MCH 33.2 MCHC 34.3 RDW 14.9 H Plt Count 211 Neut % (Auto) 76.5 H Lymph % (Auto) 19.1 L [place] % (Auto) 3.5 Eos % (Auto) 0.1 L Baso % (Auto) 0.8 Neut # (Auto) 7400 H Lymph # (Auto) 1800 [place] # (Auto) 300 Eos # (Auto) 0 Baso # (Auto) 100 APTT Sodium 138 Potassium 3.7 Chloride 105 Carbon Dioxide 25 BUN 18 Creatinine 0.72 Estimated GFR > 60 BUN/Creatinine Ratio 25.0 H Glucose 104 Lactate 3.0 H 2.0 Calcium 8.5 Total Bilirubin 1.5 H AST 45 ALT 31 Alkaline Phosphatase 123 Total Creatine Kinase 202 H Troponin I 0.308 H* 0.318 H* Total Protein 7.0 Albumin 3.2 L Globulin 3.8 Albumin/Globulin Ratio 0.8 L Procalcitonin 0.234 Urine Color Dark yellow Urine Appearance Cloudy Urine pH 5.5 Ur Specific [place] 1.020 Urine Protein 1+ H Urine Glucose (UA) Negative Urine Ketones Negative Urine Occult Blood 3+ H Urine Nitrate Positive H Urine Bilirubin 1+ H Ur Bilirubin Confirm Positive H Urine Urobilinogen 1.0 Ur Leukocyte Esterase 2+ H Urine RBC 30-100/hpf H Urine WBC >100/hpf H Ur Squamous Epith Cells 0-1 /hpf Other Crystals Bilirubin Urine Bacteria Many (>30) H Ur Culture Indicated? Specimen cultured Vol Urine Centrifuged 10ml (spun) 05/15/24 05:00 WBC RBC Hgb Hct MCV MCH MCHC RDW Plt Count Neut % (Auto) Lymph % (Auto) [place] % (Auto) Eos % (Auto) Baso % (Auto) Neut # (Auto) Lymph # (Auto) [place] # (Auto) Eos # (Auto) Baso # (Auto) APTT 31 Sodium Potassium Chloride Carbon Dioxide BUN Creatinine Estimated GFR BUN/Creatinine Ratio Glucose Lactate Calcium Total Bilirubin AST ALT Alkaline Phosphatase Total Creatine Kinase Troponin I Total Protein Albumin Globulin Albumin/Globulin Ratio Procalcitonin Urine Color Urine Appearance Urine pH Ur Specific [place] Urine Protein Urine Glucose (UA) Urine Ketones Urine Occult Blood Urine Nitrate Urine Bilirubin Ur Bilirubin Confirm Urine Urobilinogen Ur Leukocyte Esterase Urine RBC Urine WBC Ur Squamous Epith Cells Other Crystals Urine Bacteria Ur Culture Indicated? Vol Urine Centrifuged Assessment & Plan Assessment & Plan narrative: 1. Sacral and gluteal ulcerations, likely due to pressure from bed-bound status. Can not rule out cellulitis or osteomyelitis. Continue IV vancomycin and Zosyn started in the emergency department. Follow cultures. Consult Wound Care. 2. Severe lower extremity weakness, muscle wasting, multiple vertebral compression fractures. Etiology unclear. Rule out spinal cord compression, cauda equina syndrome. Appears chronic. Obtain MRI. Check PSA. 3. Elevated troponin, rule out myocardial infarction. Asymptomatic. Monitor serial cardiac enzymes. Obtain echocardiogram. No evidence of acute coronary syndrome. 4. Urinary tract infection. Treat with above antibiotics. Follow cultures. 5. Dehydration, hypotension due to volume depletion. Hydrate intravenously and monitor. 6. Severe protein calorie malnutrition. Advanced general diet. Consult dietary. 7. Depression. Address pending medical stabilization. Consider antidepressant therapy and behavioral health follow-up. 8. Anemia, likely due to chronic disease. Check TSH, iron studies, B12, folate, stool guaiacs. 9. DVT prophylaxis: Lovenox. 10. Code status: Full code. His son is his surrogate caregiver. APS referral pending given home situation. Plan: -admit as inpatient -IV antibiotics -wound care -nutrition consult -serial cardiac enzymes -echocardiogram -anemia workup -psychiatric care Patient is admitted inpatient status as he will require at least 2 midnights of inpatient level care. Quality MIPS - Admit I confirm the patient?s Advance Care Plan is present, Code status is documented, Surrogate decision maker is in patient?s record [If Yes, STOP here]: Yes MIPS - Meds 'Current medications' to include all prescriptions, [id number] products, herbals, cannabis/cannabidiol products, and vitamin/mineral/dietary (nutritional) supplements. I have utilized all available resources to obtain, update, or review the patient?s current medications. [If Yes, STOP here]: Yes PROFEE Kitchen Supervisor Document charge(s): No Charge Codes Initial inpatient/observation care: [id number]
[2024-05-15] MEDS: PIPERACILLIN/TAZO 3.375 GM in SODIUM CHLORIDE 0.9% 100 ML IV ×2 (11:36→20:05)
[2024-05-15] MEDS: HYDROMORPHONE 0.5 MG INJ IV ×4 (11:39→20:07)
[2024-05-15] MEDS: ENOXAPARIN 40 MG/0.4 ML SYRINGE SUBCUT (11:39)
[2024-05-15] MEDS: SODIUM CHLORIDE 0.45% 1,000 ML 75 ML IV (11:39)
[2024-05-15 11:47] LABS: HEMOLYSIS 26 (0-50); Iron 67 ug/dL (49-181)
[2024-05-15 11:58] LABS: Percent Iron Saturation 54 % (20-50); Total Iron Binding Capacity 124 ug/dL (261-462); Transferrin 90 mg/dL (206-381)
[2024-05-15 12:18] LABS: Prostate Specific Antigen 0.708 ng/mL (0.10-4.00)
[2024-05-15 12:22] LABS: Ferritin 152 ng/mL (18-464)
[2024-05-15 12:37] LABS: Vitamin B12 Reflex MMA if <400 986 pg/mL (239-931)
[2024-05-15 12:57] LABS: Folate 2.4 ng/mL (2.76-20.0)
[2024-05-15] MEDS: VANCOMYCIN 1,000 MG in SODIUM CHLORIDE 0.9% 250 ML 250 MG IV (15:25)
[2024-05-15 15:49] LABS: Troponin I 0.384 ng/mL (0.01-0.034)
--- NOTE | 2024-05-15 22:11 | PC.WOUNDPHOT ---
Deep tissue injury
[2024-05-15] MEDS: SODIUM CHLORIDE 0.45% 1,000 ML 125 ML IV (22:33)
[2024-05-15] MEDS: LORazepam 2 MG/ML INJ 0.5 MG IV (22:34)
[2024-05-16] VITALS (7 sets, daily range): BP systolic 92–112; BP diastolic 48–66; PULSE 74–95; RESP 16–19; TEMP 36.4–37; O2SAT 96–100
[2024-05-16] MEDS: VANCOMYCIN 1,000 MG in SODIUM CHLORIDE 0.9% 250 ML 250 MG IV ×2 (03:15→15:52)
[2024-05-16] MEDS: PIPERACILLIN/TAZO 3.375 GM in SODIUM CHLORIDE 0.9% 100 ML IV ×3 (04:16→19:51)
[2024-05-16 06:34] LABS: Basophils Absolute Auto 0 /uL (0-100); Eosinophils Absolute Auto 0 /uL (0-450); Lymphocytes Absolute Auto 1500 /uL (1100-4500); Neutrophils Absolute Auto 5900 /uL (1500-7000); Platelet Count 100 X10^3/uL (150-400); White Blood Cell Count 7.9 X10^3/uL (4.5-11.0)
[2024-05-16 06:41] LABS: Add Manual Diff / Slide Review NO; Basophils Percent Auto 0.1 % (0-2); Eosinophils Percent Auto 0.1 % (2-4); Lymphocytes Percent Auto 19.6 % (25-40); Mean Corpuscular HGB Conc 33.6 % (30-36); Mean Corpuscular Hemoglobin 32.9 PG (26-34); Mean Corpuscular Volume 97.9 fL (80-100); Monocytes Absolute Auto 400 /uL (0-900); Monocytes Percent Auto 5.2 % (3-14); Red Blood Cell Count 2.12 X10^6/uL (4.5-5.9); Red Cell Distribution Width 14.6 % (11.6-14.8)
[2024-05-16 06:44] LABS: BUN Creatinine Ratio 15.2 (6-22); Blood Urea Nitrogen 12 mg/dL (9-20); Calcium 7.4 mg/dL (8.4-10.2); Carbon Dioxide 20 mmol/L (22-32); Chloride 109 mmol/L (98-107); Estimated Glomerular Filt Rate > 60 mL/min (>60); Glucose 65 mg/dL (80-110); HEMOLYSIS < 15 (0-50); Sodium 137 mmol/L (137-145)
[2024-05-16 06:45] LABS: Hematocrit 20.8 % (41-53)
[2024-05-16 06:46] LABS: Potassium 2.7 mmol/L (3.4-5.1)
[2024-05-16] MEDS: SODIUM CHLORIDE 0.45% 1,000 ML 125 ML IV ×2 (07:00→14:35)
[2024-05-16 07:11] LABS: Troponin I 0.428 ng/mL (0.01-0.034)
[2024-05-16 07:12] LABS: Magnesium 1.7 mg/dL (1.6-2.3)
--- NOTE | 2024-05-16 07:26 | P.PN_ITS ---
Subjective Subjective Interval history: Summary: 69-year-old man who has not seen a primary care provider since the was brought by paramedics to the emergency department due to complaint of painful sores on his buttocks and lower back. He states he has not gotten out of bed for several months due to chronic arthritic pain, and is cared for by his son who helps with position changes and getting him up to have bowel movements and urinate. He has been drinking fluid but eaten little for the past few days. He has told his son that he wishes to to and wishes to be left alone. He does not take any medications, denies alcohol, tobacco or drug use. Per the emergency department report EMS stated that the house was dirty in disarray. Overnight: elevated trop, Hg 7, low K, and low Mg. S: He states he was doing well, denies any pain in. He does noted home he will typically go to the bathroom while lying in bed in brace. He can take some time for these to be changed. Exam Vital Signs (past 8 hours): - 05/16/24 01:00 05/16/24 05:00 Temperature 98.0 F 98.6 F Pulse Rate 74 77 Respiratory Rate 19 18 Blood Pressure 112/65 110/66 Pulse Oximetry 96 96 Oxygen Flow Rate 0 0 Oxygen Delivery Method Room Air Oxygen Flow Rate 0 Narrative Exam Narrative: NAD, alert and oriented. Fluent speech. He was very cachectic, and chronically ill in appearance. Lungs are clear, normal rate and effort. Heart is regular, no murmur gallop or rub. Abdomen is soft, non distended. Extremities are free of edema. Objective Labs 05/16/24 06:19 05/16/24 06:19 Labs: Laboratory Results - last 24 hr 05/15/24 05/15/24 05/15/24 01:20 03:46 15:15 WBC RBC Hgb Hct MCV MCH MCHC RDW Plt Count Neut % (Auto) Lymph % (Auto) [place] % (Auto) Eos % (Auto) Baso % (Auto) Neut # (Auto) Lymph # (Auto) [place] # (Auto) Eos # (Auto) Baso # (Auto) Sodium Potassium Chloride Carbon Dioxide BUN Creatinine Estimated GFR BUN/Creatinine Ratio Glucose Calcium Magnesium Iron 67 TIBC 124 L % Saturation 54 H Transferrin 90 L Ferritin 152 Troponin I 0.384 H* Prealbumin 4.0 L Prostate Specific Ag 0.708 Vitamin B12 986 H Folate 2.4 L TSH 3.90 05/16/24 06:19 WBC 7.9 RBC 2.12 L Hgb 7.0 L Hct 20.8 L* MCV 97.9 MCH 32.9 MCHC 33.6 RDW 14.6 Plt Count 100 L Neut % (Auto) 75.0 Lymph % (Auto) 19.6 L [place] % (Auto) 5.2 Eos % (Auto) 0.1 L Baso % (Auto) 0.1 Neut # (Auto) 5900 Lymph # (Auto) 1500 [place] # (Auto) 400 Eos # (Auto) 0 Baso # (Auto) 0 Sodium 137 Potassium 2.7 L* Chloride 109 H Carbon Dioxide 20 L BUN 12 Creatinine 0.79 Estimated GFR > 60 BUN/Creatinine Ratio 15.2 Glucose 65 L Calcium 7.4 L Magnesium 1.7 Iron TIBC % Saturation Transferrin Ferritin Troponin I 0.428 H* Prealbumin Prostate Specific Ag Vitamin B12 Folate TSH PFSH Social History household members: children Smoking Status: Former smoker Assessment & Plan Assessment & Plan narrative: 1. Sacral and gluteal ulcerations, likely due to pressure from bed-bound status. Can not rule out cellulitis or osteomyelitis. Continue IV vancomycin and Zosyn started in the emergency department. Follow cultures. Consult Wound Care. 2. Severe lower extremity weakness, muscle wasting, multiple vertebral compression fractures. Etiology unclear. Rule out spinal cord compression, cauda equina syndrome. Appears chronic. Obtain MRI. Check PSA. 3. Elevated troponin, rule out myocardial infarction. Asymptomatic. Monitor serial cardiac enzymes. Obtain echocardiogram. No evidence of acute coronary syndrome. 4. Urinary tract infection. Treat with above antibiotics. Follow cultures. 5. Dehydration, hypotension due to volume depletion. Hydrate intravenously and monitor. 6. Severe protein calorie malnutrition. Advanced general diet. Consult dietary. 7. Depression. Address pending medical stabilization. Consider antidepressant therapy and behavioral health follow-up. 8. Anemia, likely due to chronic disease. Check TSH, iron studies, B12, folate, stool guaiacs. 9. DVT prophylaxis: Lovenox. 10. Code status: Full code. His son is his surrogate caregiver. APS referral pending given home situation. Plan: -admit as inpatient -IV antibiotics -wound care -nutrition consult -serial cardiac enzymes -echocardiogram -anemia workup -psychiatric care Patient is admitted inpatient status as he will require at least 2 midnights of inpatient level care. Time-Based Coding :: [TOTAL MINUTES] spent with patient and on the chart (including review of chart, obtaining history, exam, reviewing outside data, placing orders, documenting exam and treatment plan, and counseling patient) on [DATE]. Quality VTE Deep Vein Thrombosis/Pulmonary Embolism Present on Admission: No
[2024-05-16] MEDS: HYDROMORPHONE 0.5 MG INJ IV (07:35)
[2024-05-16] MEDS: POTASSIUM CHLORIDE IN WATER 10 MEQ/100 ML PIGGYBACK 100 MEQ IV ×6 (07:35→13:48)
[2024-05-16] MEDS: ENOXAPARIN 40 MG/0.4 ML SYRINGE SUBCUT (08:36)
[2024-05-16] MEDS: HYDROMORPHONE 1 MG INJ IV ×5 (09:43→23:16)
--- NOTE | 2024-05-16 12:42 | P.CONS_ITS ---
History of Present Illness Consult details Date Patient Seen: 05/16/24 Time Patient Seen: 12:00 Chief complaint: painful bedsores Narrative: The patient is a 69-year-old male with severe weakness and debility who was admitted to the hospital yesterday for further evaluation and treatment. He was found to have multiple pressure ulcers involving the sacrum, buttocks, and posterior thighs. The patient thinks that the ulcers have been present for at least 2 weeks. The ulcers are sometimes painful but he has not noted any drainage. He has severe generalized weakness and has been unable to stand for weeks and remains in bed the majority of the time but his son will occasionally lift him up to sit in a chair. The patient is incontinent of stool and urine. He has had a very poor appetite but has been trying to stay hydrated. The patient denies having any fever or chills. He denies having any other chronic illnesses. Laboratory evaluation revealed anemia and UTI. Imaging studies showed evidence for compression fractures. Meds Home Medications and Allergies Home Medications Medication Instructions Recorded Confirmed Type No Known Home Medications 05/15/24 05/15/24 History Allergies Allergy/AdvReac Type Severity Reaction Status Date / Time No Known Drug Allergies Allergy Verified 05/16/24 11:34 Review of Systems Constitutional Comments: Severe weakness, decreased appetite Cardiovascular Comments: No chest pain Respiratory Comments: No shortness of breath Exam Vital Signs (past 8 hours): - 05/16/24 05:00 05/16/24 08:00 05/16/24 12:00 Temperature 98.6 F 98.4 F 98.6 F Pulse Rate 77 89 95 H Respiratory Rate 18 16 17 Blood Pressure 110/66 92/52 L 96/51 L Pulse Oximetry 96 97 99 Oxygen Flow Rate 0 0 0 Oxygen Delivery Method Room Air Oxygen Flow Rate 0 Narrative Exam Narrative: Cachectic male who appears with lethargic but does respond to questions Resp Other: Unlabored Skin Other: Multiple unstageable pressure ulcers involving the sacrum, right hip, buttocks, and posterior thighs, no erythema crepitance or drainage noted. Some of the ulcers are covered by eschars Neuro Other: Severe musculature weakness Extrem Other: Muscle atrophy Objective Labs 05/16/24 06:19 05/16/24 06:19 Labs: Laboratory Results - last 24 hr 05/15/24 05/15/24 05/16/24 01:20 15:15 06:19 WBC 7.9 RBC 2.12 L Hgb 7.0 L Hct 20.8 L* MCV 97.9 MCH 32.9 MCHC 33.6 RDW 14.6 Plt Count 100 L Neut % (Auto) 75.0 Lymph % (Auto) 19.6 L [place] % (Auto) 5.2 Eos % (Auto) 0.1 L Baso % (Auto) 0.1 Neut # (Auto) 5900 Lymph # (Auto) 1500 [place] # (Auto) 400 Eos # (Auto) 0 Baso # (Auto) 0 Sodium 137 Potassium 2.7 L* Chloride 109 H Carbon Dioxide 20 L BUN 12 Creatinine 0.79 Estimated GFR > 60 BUN/Creatinine Ratio 15.2 Glucose 65 L Calcium 7.4 L Magnesium 1.7 Troponin I 0.384 H* 0.428 H* Folate 2.4 L PFSH Social History household members: children Tobacco & Substance Use Smoking Status: Former smoker Assessment & Plan Assessment and plan (1) Pressure ulcer of sacral region, unstageable: Status: Acute (2) Pressure ulcer of right hip, unstageable: Status: Acute (3) Pressure ulcer of right buttock, unstageable: Status: Acute (4) Pressure ulcer of left buttock, unstageable: Status: Acute (5) Pressure ulcer of other site, unstageable: Status: Acute (6) Declining functional status: Status: Acute Assessment & Plan narrative: The patient with severe debility, malnutrition, and anemia with multiple pressure ulcers that are unstageable and are covered by eschar. Recommend painting ulcers with Betadine and allowing to air dry then cover with Allevyn, pressure offloading, aggressive protein supplementation, consider transfusion, follow up at wound center after discharge. Time-Based Coding :: [45 MINUTES] spent with patient and on the chart (including review of chart, obtaining history, exam, reviewing outside data, placing orders, documenting exam and treatment plan, and counseling patient) on [05/16/24].
--- NOTE | 2024-05-16 14:05 | CM.DANOTE ---
Patient is a 69 yo male who was admitted INPT Status on 05/15/24 for Pressure Ulcers. Pt has [facility] and [facility] for insurance and pt has No PCP. EMR was reviewed. Per MD, pt with no medical hx for about 40 years and has upper extremity contractures and pressure ulcers from being bed bound and will need to r/o osteo vs cellulitis and currently on IV-Abx. Wound Consult orders placed. Pt also with muscle wasting and UTI. Per ED staff, EMS placed APS report due to condition of patient and the home. Not yet appropriate for PT/OT orders at this time. SW met bedside with pt and adult son Antony Kearney Jr. and explained role and pt alert and oriented x3 but his appearance seems malnourished, oral cavity caked with residue, and photos of his wounds quite concerning. Pt and son confirm that pt has a hospital bed at home but the electric connections have been broken for quite some time and his electric scooter w/c battery also now broken. Pt and son confirm that pt paid for hospital bed and scooter. Pt has been mostly bed bound for at least a few months and son helps with any transfers or ADLs. Pt denies any hx of HH or SNF but states he has multiple family members who have been in care homes before and there and he really wants to avoid SNF and preference is home. Pt confirms no PCP and was seen about 10 yrs ago at the [facility] but did not feel he was treated well. Pt states he would be agreeable establishing with a PCP and preference is [facility] (although unclear as easily pt could transport to an office visit). SW discussed potential for need of senior care IV abx and this likely could not be done from home and would likely need SNF for IV abx and wound care. Pt and son willing to consider this if absolutely needed and pt confirms that his goal is to get stronger and more mobile again and was not yet interested in Hospice, pending his progress and discharge needs. Son confirms no POA pwk completed and pt and son agreeable to review POA pwk towards completing during pt's admission. Pt only has one child (his Dtr a few years ago) and then he has one sister Gabbi in [facility] and 5 brothers in [place] and [place]. SW left copy of POA pwk to review. SW completed APS report and unable to confirm if EMS did APS report since today is a holiday and concerns with pt's failure to thrive and pt's condition leading to hospitalization and they may benefit from additional resources. Online report Confirmation Number: [id number] Plan: SW to follow closely for Wound Consult and determination of POC needs (r/o IV-Abx at d/c, eventual PT/OT eval orders, etc) to determine SNF vs home and what pt and son agreeable to. STEPHEN Farris Discharge Planning/Care Management CM Discharge Assessment Start: 05/16/24 13:25 Freq: Status: Active Protocol: Document 05/16/24 13:25 BF (Rec: 05/16/24 14:04 BF [id number]) Discharge Planning Assessment Assigned Construction Representative STEPHEN Agarwal DPOA/Assigned Designee Name informally son Antony Posadas, gave POA pwk Advance Directives? No Advance Directives on File No History Provided By Patient,Family Member,Medical Record Has Patient been admitted in last 30 No days? Prior Living Arrangements House Household Members children Comment Lives at home with adult son Antony Posadas Type of transporation used prior to Relies on Others admit Independent with ADL's No Is patient alert and oriented? Yes Needs Assistance With Bathing,Meal Prep,Managing Medications,Home Chores / Shopping Caregiver for Another No DME Already Rented / Owned Hospital Bed,Wheelchair Comment Hospital bed currently broken, scooter w/c also broken battery Patient/Family Preference Detention Facility Comment Pt wants home and to avoid SNF if possible but not thriving at home and might need [employer] IVabx pending progress Barriers to Discharge Yes Discharge Plan Detention Facility Transportation Arrangement Facility van if SNF vs family vs medicaid cabulance pending progress Additional Comment Pending further POC and determination of d/c needs Whiteboard Updated in Patient Room with Yes name and ext. # of Construction Representative Review Status In Process Please Provide Date Initial DC 05/16/24 Assessment Was Performed Next Review Type Continued Stay Review
[2024-05-16] MEDS: MAGNESIUM SULFATE 2 GM/50 ML PIGGYBACK IV (14:59)
--- NOTE | 2024-05-16 15:22 | DIET.CONS ---
Dietary Consultation Note Admission Date: 05/15/2024 08:27 Assessment: 69 y M admitted for pressure ulcers. Dietitian consulted for wounds. Met with pt at bedside. Reports not interested in eating d/t pain. Unsure for how long he hasn't been eating, estimates at least a couple of weeks. Will take a few bites of chicken or applesauce here and there, but is adamant about not wanting to eat when in pain. Pt confirms he has experienced weight loss. Unsure usual body weight/amount lost. Provided education on importance of nutrition for wound healing, attempted to discuss foods pt most willing to consume, and discussed easier to consume options available here (including ONS liquids with straws). Pt asks to be left alone d/t pain. Left room and spoke to RN. RN suggests pt would best tolerate liquids in plastic cups with lids and straws. Ht: 170.18 cm Wt: 53.524 kg BMI: 18.4 UBW: x Last BM: () MNA: 7 Flakito Score: 8 Diet: 05/15/24 Lunch General (Regular) Diet Diet Modifications: Labs: RBC 2.12 X10^6/uL (4.5-5.9) L 05/16/24 06:19 Hgb 7.0 g/dL (13.5-17.5) L 05/16/24 06:19 Hct 20.8 % (41-53) L* 05/16/24 06:19 Creatinine 0.79 mg/dL (0.66-1.25) 05/16/24 06:19 Lactate 2.0 mmol/L (0.7-2.1) 05/15/24 03:25 Iron 67 ug/dL (49-181) 05/15/24 01:20 % Saturation 54 % (20-50) H 05/15/24 01:20 Ferritin 152 ng/mL (18-464) 05/15/24 03:46 Nutrition Diagnosis: Severe Acute Protein Calorie Malnutrition r/t increased nutrient needs (protein) for healing and decreased oral intake in setting of pain as evidenced by multiple unstageable pressure ulcers, <50% of estimated energy needs for 2 weeks per diet recall (severe) and BMI underweight for age (18.4, severe) Interventions: 1. Ensure Enlive/Plus TID in plastic cup with lid & straw 2. Sd BID in plastic cup with lid and straw 3. Education provided on importance of protein and caloric intake for wound healing with attempts to discuss pt's preferences EER: [id number] kcals (35 kcals/kg per BMI) 95 g protein (1.7 g/kg per wounds) Monitoring/Evaluations: will f/u to tomorrow to assess PO intakes Electronically Signed by: Violet Church 05/16/24 15:22 Clinical Dietitian [address] [address]
[2024-05-16 15:23] LABS: Vancomycin Trough 13.8 ug/mL (10-20)
[2024-05-16 18:06] LABS: Hematocrit 21.5 % (41-53); Hemoglobin 7.3 g/dL (13.5-17.5)
[2024-05-16 18:54] LABS: HEMOLYSIS < 15 (0-50); Potassium 3.2 mmol/L (3.4-5.1)
[2024-05-16 19:02] LABS: Vancomycin Peak 22.6 ug/mL (20-40)
[2024-05-17] MEDS: HYDROMORPHONE 1 MG INJ IV ×6 (02:46→23:14)
[2024-05-17] MEDS: VANCOMYCIN 1,000 MG in SODIUM CHLORIDE 0.9% 250 ML 250 MG IV (02:46)
[2024-05-17 03:00] VITALS: BP 99/56; PULSE 80; RESP 16; TEMP 37; O2SAT 100
[2024-05-17] MEDS: PIPERACILLIN/TAZO 3.375 GM in SODIUM CHLORIDE 0.9% 100 ML IV ×3 (04:40→20:35)
[2024-05-17 06:52] LABS: BUN Creatinine Ratio 15.3 (6-22); Blood Urea Nitrogen 9 mg/dL (9-20); Carbon Dioxide 20 mmol/L (22-32); Chloride 106 mmol/L (98-107); Estimated Glomerular Filt Rate > 60 mL/min (>60); Glucose 47 mg/dL (80-110); HEMOLYSIS < 15 (0-50); Potassium 3.1 mmol/L (3.4-5.1); Sodium 132 mmol/L (137-145)
[2024-05-17 06:53] LABS: Magnesium 1.8 mg/dL (1.6-2.3)
--- NOTE | 2024-05-17 08:14 | PM.PN.1 ---
Subjective Subjective Interval history: Summary: 69-year-old man who has not seen a primary care provider since the was brought by paramedics to the emergency department due to complaint of painful sores on his buttocks and lower back. He states he has not gotten out of bed for several months due to chronic arthritic pain, and is cared for by his son who helps with position changes and getting him up to have bowel movements and urinate. He has been drinking fluid but eaten little for the past few days. He has told his son that he wishes to to and wishes to be left alone. He does not take any medications, denies alcohol, tobacco or drug use. Per the emergency department report EMS stated that the house was dirty in disarray. Overnight: No events. S: He denies dyspnea. He has some back pain. No nausea. PT notes severe contractures of both legs and arms. Exam Vital Signs (past 8 hours): - 05/17/24 03:00 Temperature 98.6 F Pulse Rate 80 Respiratory Rate 16 Blood Pressure 99/56 L Pulse Oximetry 100 Oxygen Flow Rate 0 Oxygen Delivery Method Room Air Oxygen Flow Rate 0 Narrative Exam Narrative: NAD, alert and oriented. Fluent speech. He was very cachectic, and chronically ill in appearance. Lungs are clear, normal rate and effort. Heart is regular, no murmur gallop or rub. Abdomen is soft, non distended. Extremities are free of edema. severe skin issues on back and bottom, none needed debridement. Contractures of both arms and legs. Objective Imaging Echo: Radiologist's impression: The left ventricular cavity is small. The ejection fraction is estimated to be 60-65%. There has been no significant change since the previous exam. The interventricular septum is flattened, consistent with a right ventricular pressure/volume condition. The right ventricle is moderately dilated. Right ventricular systolic function is moderately reduced. Right ventricular systolic pressure is estimated to be 26 mmHg plus the clinically estimated CVP which cannot be estimated on this exam. The left atrium grossly appears normal in size. The aortic root is normal size. No significant valvular heart disease. Since 10/30/2012, there is a significant increased in size of RV chamber and RV systolic function has significantlyh decreased. Consider PE evaluation if not yet completed. CT scan - chest: Radiologist's impression: No pulmonary embolus. Tree-in-bud type opacity can be seen involving the lung bases, left worse than right. Chronic infection is suspected. Additional findings: Remote appearing T11, T12, and L2 compression deformities Labs 05/16/24 17:41 05/17/24 06:27 Labs: Laboratory Results - last 24 hr 05/16/24 05/16/24 05/16/24 14:40 17:41 18:38 Hgb 7.3 L Hct 21.5 L Sodium Potassium 3.2 L Chloride Carbon Dioxide BUN Creatinine Estimated GFR BUN/Creatinine Ratio Glucose Calcium Magnesium Vancomycin Peak 22.6 Vancomycin Trough 13.8 05/17/24 06:27 Hgb Hct Sodium 132 L Potassium 3.1 L Chloride 106 Carbon Dioxide 20 L BUN 9 Creatinine 0.59 L Estimated GFR > 60 BUN/Creatinine Ratio 15.3 Glucose 47 L Calcium 7.0 L Magnesium 1.8 Vancomycin Peak Vancomycin Trough [facility] Social History household members: children Smoking Status: Former smoker Assessment & Plan Assessment & Plan narrative: 1. Sacral and gluteal ulcerations, likely due to pressure from bed-bound status. Present on admission and active. 2. Severe lower extremity weakness, muscle wasting, multiple vertebral compression fractures, and contractures. Etiology unclear. Not able to comply with MRI scans. 3. Elevated troponin, rule out myocardial infarction. Present on admission and improved. 4. Urinary tract infection. Present on admission and improving. 5. Dehydration, hypotension due to volume depletion. Present on admission and improved. 6. Severe protein calorie malnutrition. Advanced general diet. Consult dietary. 7. Depression. Address pending medical stabilization. Consider antidepressant therapy and behavioral health follow-up. 8. Anemia, likely due to chronic disease. Check TSH, iron studies, B12, folate, stool guaiacs. 9. DVT prophylaxis: Lovenox. 10. Code status: Full code. His son is his surrogate caregiver. APS referral pending given home situation. Plan: -IV antibiotics, urine culture with GNB (final pending) -wound care consult appreciated. -nutrition consult -serial cardiac enzymes -echocardiogram as above. He needs skin and general care. Patient is admitted inpatient status as he will require at least 2 midnights of inpatient level care. Time-Based Coding :: [TOTAL MINUTES] spent with patient and on the chart (including review of chart, obtaining history, exam, reviewing outside data, placing orders, documenting exam and treatment plan, and counseling patient) on [DATE]. Quality VTE Deep Vein Thrombosis/Pulmonary Embolism Present on Admission: No
[2024-05-17] MEDS: HYDROMORPHONE 0.5 MG INJ IV (08:38)
[2024-05-17] MEDS: SODIUM CHLORIDE 0.45% 1,000 ML 125 ML IV ×2 (09:03→21:53)
[2024-05-17] MEDS: ENOXAPARIN 40 MG/0.4 ML SYRINGE SUBCUT (09:03)
[2024-05-17] MEDS: POTASSIUM CHLORIDE 20 MEQ TAB 40 MEQ PO (09:11)
[2024-05-17 09:49] VITALS: BP 105/64; PULSE 83; RESP 12; TEMP 36.8; O2SAT 97
--- NOTE | 2024-05-17 11:40 | PT.IIE ---
Current Diagnoses Pressure ulcer of sacral region, unstageable (05/15/24) Pressure ulcer of right hip, unstageable (05/15/24) Pressure ulcer of right buttock, unstageable (05/15/24) Pressure ulcer of left buttock, unstageable (05/15/24) Pressure ulcer of other site, unstageable (05/15/24) Other malaise (05/15/24) Physical Therapy Inpatient Evaluation/Re-Eval M1 PT/OT-IP Prior Functional Status Start: 05/17/24 13:06 Freq: NEEDED Status: Active Protocol: Document 05/17/24 11:40 AB (Rec: 05/17/24 13:23 AB [id number]) Medical Review Prior Functional Status Medical History Reviewed Yes Communication able to make needs known; slow to respond to questions Mobility and Gait pt stated that he has just been in bed for a few weeks; able to stand and pivot transfer prior to that but has stopped due to LBP; per EMR, pt has been bed bound for a few months already; and non ambulatory for quite sometime (pt unable to provide info on how long he has not been able to walk) son assists pt with mobility and pt stated that son just picks him up to get to his bedside commode Social History Household Members children Living Arrangements House Number of Floors (Floors) Two Floors Number of Stairs To Enter/Railing? pt stays on main level of the house ramp to enter Home Environment High Toilet,Tub/Shower Home Equipment Shower Seat without Backrest, Hand Held Shower Additional Social History Comment pt lives with his son who assists him M2 PT-IP Current Condition Start: 05/17/24 13:06 Freq: NEEDED Status: Active Protocol: Document 05/17/24 11:40 AB (Rec: 05/17/24 13:23 AB [id number]) Physical Therapy Current Condition Current Condition Evaluation Date 05/17/24 Treatment Diagnosis sacral decubitus ulcers; generalized weakness Onset Date 05/15/24 M3 PT-IP Subjective Start: 05/17/24 13:06 Freq: NEEDED Status: Active Protocol: Document 05/17/24 11:40 AB (Rec: 05/17/24 13:23 AB [id number]) Subjective Physical Therapy Visit Type Type Initial Evaluation Visit Start Time 11:40 Visit Stop Time 12:28 Number of PATTERNMAKER Visits 0 Therapy Pain Assessment Pain When Pain Assessed At Rest Pain Present Pain Present Pain Reported Location Right Lower Posterior Lateral Buttock Intensity 8 Pain Management Techniques Distraction,Modification of Treatment,Re-positioning, Timing of Activity with Medications M4 PT-IP Mobility and Gait Start: 05/17/24 13:06 Freq: NEEDED Status: Active Protocol: Document 05/17/24 11:40 AB (Rec: 05/17/24 13:23 AB [id number]) PT-Bed Mobility Assessment Rolling Level of Assist Maximal Assistance,1 Person Assistance Supine to Sit Supine to Sit Total Assistance,2 Person Assistance Sit to Supine Sit to Supine Total Assistance,2 Person Assistance,Head of Bed Elevated PT-Transfer Assessment Comments Mobility Comments pt in bed. obtained PLOF and home set up. pt with bilateral LE contracture: RLE knee flexion contracture: ~ 90 deg and LLE: ~ 50 deg; presents with hip adductor contractures. pt stated that he had his contractures for a long time. completed stretching and inhibition techniques to decrease LE tightness prior to mobility. pt requiring total A x 2 for bed mobiltiy supine to sit. able to sit on EOB max A x 1 and max cues. c/o LBP. assisted pt back to bed total A x 2 and max cues. positioned pt in bed requiring max A for rolling L<>R. total A for scooting towards HOB. call light and table placed within reach. talked to hospitalist and social science professor regarding PT limitations and pt is needing LTC placement. PT-Balance Assessment Sitting Balance and Reactions Static Sitting Balance Ability Poor Dynamic Sitting Balance Ability Poor M5 PT-IP Objective Assessments Start: 05/17/24 13:06 Freq: NEEDED Status: Active Protocol: Document 05/17/24 11:40 AB (Rec: 05/17/24 13:23 AB [id number]) Orientation Orientation/Cognition Level of Alertness Alert Orientation Name Safety Awareness Decreased Safety Awareness Comments with confusion Gross Range of Motion Lower Extremity ROM Assessment Bilaterally Impaired Impairments BLE contractures: R knee in ~ 90 deg flexion; L knee in ~ 50 deg flexion; B hip contracture in adduction M6 PT-IP Treatment Start: 05/17/24 13:06 Freq: NEEDED Status: Active Protocol: Document 05/17/24 11:40 AB (Rec: 05/17/24 13:23 AB [id number]) Physical Therapy Treatment Education Education Provided Safety M7 PT-IP Assessment and Plan Start: 05/17/24 13:06 Freq: NEEDED Status: Active Protocol: Document 05/17/24 11:40 AB (Rec: 05/17/24 13:23 AB [id number]) PT Summary Assessment and Plan Potential Rehabilitation Potential Fair Status of Condition at Evaluation Evolving Summary Impairments Pain,ROM,Strength,Balance, Coordination,Sensation,Tone, Cognition,Bed Mobility, Transfers,Gait,Activity Tolerance Assessment Summary Pt is a 69 y/o M who is admitted for sacral ulcers. pt has been bed bound for a few months and is non- ambulatory. pt presents with BLE contractures and c/o increase pain during mobility. pt requiring total A x 2 with all tasks. Pt is not appropriate for skilled PT and will require LTC placement . hospitalist and social science professor aware. Frequency of Treatment Frequency Of Treatment Discharge Recommendations To Nursing Amount of Assist Needed Mechanical Lift Discharge Recommendations PT Discharge Recommendations Home with 24/7 Assist Available,Home Health Other Discharge Recommendations LTC placement Transportation Needs at Discharge Stretcher/Ambulance
[2024-05-17 12:24] VITALS: BP 121/68; PULSE 80; RESP 18; TEMP 36.4; O2SAT 98
--- NOTE | 2024-05-17 12:25 | OT.IP.EVAL ---
Current Diagnoses Pressure ulcer of sacral region, unstageable (05/15/24) Pressure ulcer of right hip, unstageable (05/15/24) Pressure ulcer of right buttock, unstageable (05/15/24) Pressure ulcer of left buttock, unstageable (05/15/24) Pressure ulcer of other site, unstageable (05/15/24) Other malaise (05/15/24) Occupational Therapy Inpatient Evaluation/Re-Eval M1 PT/OT-IP Prior Functional Status Start: 05/17/24 13:06 Freq: NEEDED Status: Active Protocol: Document 05/17/24 13:57 [facility] (Rec: 05/17/24 14:21 [facility] [id number]) Medical Review Prior Functional Status Medical History Reviewed Yes Communication able to make needs known; slow to respond to questions Mobility and Gait pt stated that he has just been in bed for a few weeks; able to stand and pivot transfer prior to that but has stopped due to LBP; per EMR, pt has been bed bound for a few months already; and non ambulatory for quite sometime (pt unable to provide info on how long he has not been able to walk) son assists pt with mobility and pt stated that son just picks him up to get to his bedside commode Activities of Daily Living and IADL's Pt states just able to do some grooming and self-feeding on his own but gets help from his son as needed at times. Pt is dependent on his son for all other needs. Prior Functional Level (Other details) Pt states has been able to sit on the BSC 2-3 weeks ago, an admits to not been able to walk fro months. Per pt , pt' s son just picks him up at this time to assist. Social History Household Members children Living Arrangements House Number of Floors (Floors) Two Floors Number of Stairs To Enter/Railing? pt stays on main level of the house ramp to enter Home Environment High Toilet,Tub/Shower Home Equipment Shower Seat without Backrest, Hand Held Shower Additional Social History Comment pt lives with his son who assists him M2 OT-IP Current Condition Start: 05/17/24 13:56 Freq: Status: Active Protocol: Document 05/17/24 13:57 [facility] (Rec: 05/17/24 14:21 [facility] [id number]) Occupational Therapy Current Condition Current Condition Evaluation Date 05/17/24 Treatment Diagnosis Pressure ulcers, weakness Diagnosis Onset Date 05/17/24 M3 OT- IP Subjective and Pain Start: 05/17/24 13:56 Freq: Status: Active Protocol: Document 05/17/24 13:57 [facility] (Rec: 05/17/24 14:21 [facility] [id number]) OT- Subjective Occupational Therapy Visit Type Type Initial Evaluation Visit Start Time 11:45 Visit Stop Time 12:25 Occupational Therapy Visit Comments Patient Comments Pt agreed to try to get up. Patient/Caregiver Goals Pt states want to get better. OT Pain Assessment Pain When Pain Assessed During Mobility Pain Present Pain Present Pain Reported Location Back Pain Behaviors Calling Out,Facial Grimacing, Wincing M4 OT- IP ADL's Start: 05/17/24 13:56 Freq: Status: Active Protocol: Document 05/17/24 13:57 [facility] (Rec: 05/17/24 14:21 [facility] [id number]) OT [id number] Comments OT Self-Feeding Comments Pt needing assist to help hold the cup to his mouth in order to sip from. OT ADL-Grooming Comments OT Grooming Comments Not performed. OT ADL-Oral Care Comments Oral Care Comments Not performed. OT ADL-Dressing General Eval Lower Body Dressing Ability Total Assistance Areas Needing Assistance Underpants/Brief,Socks OT ADL-Toileting General Evaluation Toileting Ability Total Assistance Areas Needing Assistance Manage Clothing,Perform Perineal Hygiene Comments OT Toileting Comments Rudolph in place OT ADL-Bathing Comments OT Bathing Comments Sponge bath more appropriate at this time. M5 OT- IP IADL's Start: 05/17/24 13:56 Freq: Status: Active Protocol: Document 05/17/24 13:57 [facility] (Rec: 05/17/24 14:21 [facility] [id number]) OT-Instrumental Activities of Daily Living Home Safety Awareness Home Safety Comments Pt realizes that he is very dependent on his son for most needs. Medication Management Medication Management Caregiver Administers Money Management Money Management Caregiver Provides Assistance Meal Preparation Meal Preparation Caregiver Provides Assist External Relations Director External Relations Director Caregiver Provides Assist M6 OT- IP Functional Cognition Start: 05/17/24 13:56 Freq: Status: Active Protocol: Document 05/17/24 13:57 [facility] (Rec: 05/17/24 14:21 [facility] [id number]) Cognitive Factors Limiting Selfcare Function Cognitive Ability Level of Alertness Alert Patient Orientation Name,Place Attention Span Ability Capable of Focused Attention, Capable of Sustained Attention Ability to Follow Commands Able to Follow One Step Commands with Increased Time, Able to Follow One Step Commands with Repetition Cognitive Comments Cognitive Assessment Comments Pt able to follow simple commands. Unsure if pt is able to recall his prior level of care accurately as pt insists he was able to get to the BSC 2-3 weeks ago. OT- Vision and Hearing OT- Hearing Assessment OT- Hearing Assessment WFL OT- Vision Assessment Visual Acuity WFL M7 OT- IP Mobility and Balance Start: 05/17/24 13:56 Freq: Status: Active Protocol: Document 05/17/24 13:57 [facility] (Rec: 05/17/24 14:21 [facility] [id number]) OT- Bed Mobility Assessment Rolling Type of Rolling Bilateral Level of Assistance Maximum Assistance,Bedrails Supine to Sit Supine to Sit Assist Total Assistance,2 Person Assistance Sit to Supine Sit to Supine Assist Total Assistance,2 Person Assistance OT-Transfer Assessment Comments Mobility Comments BP supine 121/63 and total assist x2 to sit to the edge of bed and MAX AX 1 for sitting balance. OT- Balance Assessment Sitting Balance and Reactions Static Sitting Balance Ability Poor Dynamic Sitting Balance Ability Poor M8 OT- IP Objective Assessments Start: 05/17/24 13:56 Freq: Status: Active Protocol: Document 05/17/24 13:57 [facility] (Rec: 05/17/24 14:21 [facility] [id number]) OT Gross Range of Motion Upper Extremity Range of Motion Assessment Bilaterally Impaired ROM Impairments Contractures to LUE especially at hands and also left hand swollen. RUE 0-90 and grossly able to assist. LUE not able to assist to help with sitting balance and needing assist to help place his LUE of the bed rail so able to try to assist to sit upright. OT Strength Upper Extremity Strength Assessment Bilaterally Impaired M9 OT- IP Assessment and Plan Start: 05/17/24 13:56 Freq: Status: Active Protocol: Document 05/17/24 13:57 [facility] (Rec: 05/17/24 14:21 [facility] [id number]) OT Summary Assessment and Plan Potential Rehabilitation Potential Poor Analytic Complexity at Evaluation Moderate Summary OT Impairments Pain,Range of Motion,Strength, Balance,Coordination, Functional Cognition, Functional Mobility,Self- Feeding,Grooming,Dressing, Toileting,Bathing,Toilet Transfers,Shower Transfers, Activity Tolerance Progress Towards Goals Slow Progress due to Pain,Slow Progress due to Medical Issues,Slow Progress due to Activity Tolerance Assessment Summary Pt has been bed bound and has wounds on his coccyx and back of legs. Pt BLE contractures and high tone, LUE contractures mainly at his hand. At this time pt was total Assist x2 for bed mobility. Prior per pt, pt's son lifts his up in order to move at this time. Pt has been dependent for most of his needs except able to at times feed and do some grooming needs. At this time pt is dependent for most needs, his contractures and wounds limiting his function. At this time pt more appropriate for technician terminal and repeater care versus SNF. Discharge pt from OT services. Frequency of Treatment Frequency Of Treatment Discharge
--- NOTE | 2024-05-17 13:31 | CM.DPC ---
Addendum entered by STEPHEN Farris 05/17/24 14:40: ADD: [facility] can accept for SNF as long as son agreeable to d/c home after SNF and son very willing to have pt d/c home at any point. [facility] can not accept until PCP established, waiting to hear back from TCM team about getting pt scheduled with new Provider. BF Original Note: DCP SNF vs Home Planning: Per MD, pt not needing any surgical intervention for his wounds and likely can d/c on PO abx and will mostly be daily dressing changes and to keep pt clean and dry. Likely stable in 1-2 days. Per PT/OT, pt with significant contractures of his hands and both legs and not really able to participate in therapies and more appropriate for LTC placement unless SNF for wound care and some strengthening. SW met bedside with pt and his adult son Antony Posadas and explained role again and discussed current MD recommendation of SNF. Pt hesitant about SNF but confirms he wants to get better and improve and get stronger. Discussed the benefits of SNF for additional wound healing time and care. Provided the SNF Choice List to review and they are agreeable with [facility] SNF referrals to determine if any would be willing to accept and have bed availability. SNF referrals sent to [facility], [facility], [facility], [facility]. No PASRR done yet. Family discussed initial preference for home and son states he is planning to purchase a new firmer bed mattress for the pt today and look for over the bed trapeze and regular w/c today from the [facility] and also [facility] if the [facility] not have that equipment. Discussed HH at least RN for wound care and provided the HH Choice list and both likely agreeable to HH RN but want to discuss further. Barrier for home that was discussed was transportation. Vehicle son currently drives is likely too high for pt to get into easily and pt does not appear to be able to assist with transfer and his wounds for sliding into a private vehicle. Discussed w/c van but son would need to get w/c at home as cabulance does not assist pt into the home. Another option is BLS transport which would likely be needed but no guarantee that insurance would cover. HH referrals sent to [facility], [facility], and [facility] to determine if any could accept if plan is home at d/c. SW also discussed potential of Hospice Care if pt's Goals of Care are to be home and comfortable. Son Antony Jr. tearful and he states its hard to see his dad in pain and less mobile. Son Antony confirms pt's spouse/his mom is and his sister killed in 2002. Only pt and his son left for immediate family. Pt very groggy this afternoon after working with PT/OT and getting pain medication and continued to fall asleep. SW provided the POA pwk to son again and very appreciative and agreeable with working on plan A)SNF B) Home with maybe HH or Hospice pending pt's progress. Plan: SW to follow very closely for SNF and HH reviews to determine discharge planning options for SNF vs Home. STEPHEN Farris
--- NOTE | 2024-05-17 13:44 | DIET.PN1 ---
Dietary Progress Note Assessment: This morning pt had drank 1/4 of ONS and applesauce. This afternoon pt had ONS plastic cup bedside and Sd. Cups each had 1/4 to 1/3 gone. Will trial unflavored Sd in applesauce instead of drink. Continue ONS TID. Ht: 170.18 cm Wt: 53.524 kg BMI: 18.4 UBW: Last BM: 05/17/24 (05/17/24 03:00) MNA: 7 Flakito Score: 8 Diet: 05/15/24 Lunch General (Regular) Diet Diet Modifications: Labs: RBC 2.12 X10^6/uL (4.5-5.9) L 05/16/24 06:19 Hgb 7.3 g/dL (13.5-17.5) L 05/16/24 17:41 Hct 21.5 % (41-53) L 05/16/24 17:41 Creatinine 0.59 mg/dL (0.66-1.25) L 05/17/24 06:27 Lactate 2.0 mmol/L (0.7-2.1) 05/15/24 03:25 Iron 67 ug/dL (49-181) 05/15/24 01:20 % Saturation 54 % (20-50) H 05/15/24 01:20 Ferritin 152 ng/mL (18-464) 05/15/24 03:46 Electronically Signed by: Violet Church 05/17/24 13:44 Clinical Diet[address] [address]
[2024-05-17 16:00] VITALS: BP 109/66; PULSE 83; RESP 18; TEMP 36.1; O2SAT 98
[2024-05-17 20:00] VITALS: BP 132/68; PULSE 85; RESP 12; TEMP 36.4; O2SAT 100
[2024-05-17] MEDS: OXYCODONE IR 5 MG TABLET PO (22:02)
[2024-05-17] MEDS: ACETAMINOPHEN 325 MG TABLET 650 MG PO (22:02)
[2024-05-18 01:23] VITALS: BP 120/65; PULSE 86; RESP 20; TEMP 36.2; O2SAT 99
[2024-05-18] MEDS: HYDROMORPHONE 1 MG INJ IV (04:07)
[2024-05-18] MEDS: PIPERACILLIN/TAZO 3.375 GM in SODIUM CHLORIDE 0.9% 100 ML IV ×2 (04:07→11:24)
[2024-05-18 05:00] VITALS: BP 127/58; PULSE 96; RESP 19; TEMP 36.4; O2SAT 100
[2024-05-18] MEDS: SODIUM CHLORIDE 0.45% 1,000 ML 125 ML IV ×2 (05:54→13:52)
--- NOTE | 2024-05-18 06:53 | PC.NURSE ---
Patient alert, oriented to self only, yells out at times, States help me then unable to verbalize what he needs help with. Unable to use call light. Patient makes minimal attempts to move. All drsgs on buttocks and hips changed at 0030. The Allevyn drsgs had small amt of bailey with serosang drainage. No Betadine available on process technician so area cleaned with NS, patted dry with gauze, and covered with Allyevyn.
[2024-05-18 06:58] LABS: BUN Creatinine Ratio 13.2 (6-22); Blood Urea Nitrogen 7 mg/dL (9-20); Calcium 7.1 mg/dL (8.4-10.2); Carbon Dioxide 16 mmol/L (22-32); Chloride 105 mmol/L (98-107); Estimated Glomerular Filt Rate > 60 mL/min (>60); HEMOLYSIS < 15 (0-50); Potassium 3.3 mmol/L (3.4-5.1); Sodium 132 mmol/L (137-145)
[2024-05-18 06:59] LABS: Glucose 41 mg/dL (80-110)
[2024-05-18] MEDS: DEXTROSE 50 % IN WATER 25 GM/50 ML SYRINGE IV (08:03)
[2024-05-18 09:00] VITALS: BP 113/63; PULSE 68; RESP 16; TEMP 36.7; O2SAT 96
[2024-05-18] MEDS: ENOXAPARIN 40 MG/0.4 ML SYRINGE SUBCUT (09:41)
--- NOTE | 2024-05-18 10:57 | CM.DPNOTE ---
DCP Note Reviewed chart. Patient has been accepted at [facility]. Met w/patient's son Antony at bedside P [phone]; updated on plan and son agreeable. Reiterated that patient will need to discharge home w/son, from , either with HH or hospice. Son aware and agreeable, says he is working to get a motorized scooter for patient's use once home. Spoke with Fletcher Mclaughlin, assigned APS yeast tender P [phone] [email or web address]. Emailed clinical. Explained that in conversation with son this morning, son's intentions seem good, although safety insight may be skewed. Fletcher planned to communicate with son Antony and with the [facility] elder advocate group about patient. Hospital exempt PASRR- patient has not received ativan since the morning of 05/17, it is unlikely he will discharge with ativan; will plan to discuss with discharging provider. Plan: Discharge to [facility] anticipated 05/19 if medically stable for DC, BLS transport was recommended by PT 05/17. CM team following closely for coordination of discharge. ALICE
[2024-05-18] MEDS: POTASSIUM CHLORIDE IN WATER 10 MEQ/100 ML PIGGYBACK 100 MEQ IV ×4 (11:01→13:53)
--- NOTE | 2024-05-18 12:29 | PC.NURSE ---
Day shift: this nurse attempted to give patient food, patient declined. provided oral care with wet oral sponge
[2024-05-18] MEDS: PIPERACILLIN/TAZO 4.5 GM in SODIUM CHLORIDE 0.9% 100 ML IV ×2 (14:50→21:26)
[2024-05-18 15:33] LABS: Add Manual Diff / Slide Review NO; Basophils Absolute Auto 0 /uL (0-100); Basophils Percent Auto 0.3 % (0-2); Eosinophils Absolute Auto 0 /uL (0-450); Eosinophils Percent Auto 0.2 % (2-4); Hematocrit 22.8 % (41-53); Hemoglobin 7.8 g/dL (13.5-17.5); Lymphocytes Absolute Auto 1800 /uL (1100-4500); Lymphocytes Percent Auto 23.4 % (25-40); Mean Corpuscular HGB Conc 34.2 % (30-36); Mean Corpuscular Hemoglobin 32.7 PG (26-34); Mean Corpuscular Volume 95.6 fL (80-100); Monocytes Absolute Auto 400 /uL (0-900); Monocytes Percent Auto 4.7 % (3-14); Neutrophils Absolute Auto 5400 /uL (1500-7000); Neutrophils Percent Auto 71.4 % (50-75); Platelet Count 133 X10^3/uL (150-400); Red Blood Cell Count 2.39 X10^6/uL (4.5-5.9); Red Cell Distribution Width 14.5 % (11.6-14.8); White Blood Cell Count 7.6 X10^3/uL (4.5-11.0)
[2024-05-18] MEDS: HYDROMORPHONE 0.5 MG INJ IV ×2 (16:14→22:29)
[2024-05-18 17:00] VITALS: BP 127/56; PULSE 98; RESP 20; TEMP 36.8; O2SAT 100
--- NOTE | 2024-05-18 17:26 | P.PN_ITS ---
Subjective Subjective Interval history: Summary: 69-year-old man who has not seen a primary care provider since the was brought by paramedics to the emergency department due to complaint of painful sores on his buttocks and lower back. Being treated for UTI and infected pressure ulcer. Overnight: No events but he is lethargic today, hypoglycemic, and not eating. Exam Vital Signs (past 8 hours): Oxygen Delivery Method Room Air Oxygen Flow Rate 0 Narrative Exam Narrative: Cachectic, chronically ill appearing, difficult to arouse today CV: RRR no m/r/g Pulm diminished breath sounds b/l lung bases Abd S NT ND Ext: no edema Objective Labs 05/18/24 15:25 05/18/24 06:30 Labs: Laboratory Results - last 24 hr 05/18/24 05/18/24 06:30 15:25 WBC 7.6 RBC 2.39 L Hgb 7.8 L Hct 22.8 L MCV 95.6 MCH 32.7 MCHC 34.2 RDW 14.5 Plt Count 133 L Neut % (Auto) 71.4 Lymph % (Auto) 23.4 L [place] % (Auto) 4.7 Eos % (Auto) 0.2 L Baso % (Auto) 0.3 Neut # (Auto) 5400 Lymph # (Auto) 1800 [place] # (Auto) 400 Eos # (Auto) 0 Baso # (Auto) 0 Sodium 132 L Potassium 3.3 L Chloride 105 Carbon Dioxide 16 L BUN 7 L Creatinine 0.53 L Estimated GFR > 60 BUN/Creatinine Ratio 13.2 Glucose 41 L* Calcium 7.1 L [facility] Social History household members: children Smoking Status: Former smoker Assessment & Plan Assessment & Plan narrative: 1. Sacral and gluteal ulcerations, likely due to pressure from bed-bound status. Present on admission and active. 2. Severe lower extremity weakness, muscle wasting, multiple vertebral compression fractures, and contractures. 3. Elevated troponin, ruled out myocardial infarction. Present on admission and improved. 4. Sepsis with acute metabolic encephalopathy, thrombocytopenia secondary to Acute cystitis and possible infected pressure ulcers. Present on admission and improving. 5. Dehydration, hypotension due to volume depletion. Present on admission and improved. 6. Severe protein calorie malnutrition. Advanced general diet. Consult dietary. 7. Depression. Address pending medical stabilization. Consider antidepressant therapy and behavioral health follow-up. 8. Anemia, likely due to chronic disease. Check TSH, iron studies, B12, folate, stool guaiacs. 9. DVT prophylaxis: Lovenox. 10. Code status: Full code. His son is his surrogate caregiver. APS referral pending given home situation. Plan: -Wound culture with pseudomonas, increase zosyn to 4.5 q6 for now. Urine culture with klebsiella only resistant to ampicillin will be treated effectively with treatment for pseudomonas. - change fluid with decreased PO intake and hypoglycemia to d5 NS (hyponatremic as well. - Hg is improved today at least up trending but still <8 - needs goals of care discussions given his presentation, with regards to feeding tube, etc if he continues to not eat or possible transition to comfort based care and hospice. - unclear if encephalopathy today due to hypoglycemia or evidence of worsening infection, will see if response to the above change in antibiotic and starting D5 infusion. No change essentially in WBC today. Will check Mg, phos, etc to monitor for refeeding syndrome as well. -seen by wound care, appreciate recommendations with plan for outpatient follow up if discharged and not on hospice. Patient is admitted inpatient status as he will require at least 2 midnights of inpatient level care. Time-Based Coding :: [TOTAL MINUTES] spent with patient and on the chart (including review of chart, obtaining history, exam, reviewing outside data, placing orders, documenting exam and treatment plan, and counseling patient) on [DATE]. Quality VTE Deep Vein Thrombosis/Pulmonary Embolism Present on Admission: No
[2024-05-18] MEDS: DEXTROSE 5%-0.9% NS 1,000 ML 75 ML IV (18:01)
[2024-05-18 21:00] VITALS: BP 125/61; PULSE 105; RESP 18; TEMP 37.4; O2SAT 100
[2024-05-19] VITALS (9 sets, daily range): BP systolic 110–144; BP diastolic 61–89; PULSE 74–100; RESP 16–28; TEMP 36.3–37; O2SAT 96–100
[2024-05-19] MEDS: PIPERACILLIN/TAZO 4.5 GM in SODIUM CHLORIDE 0.9% 100 ML IV ×4 (03:02→21:16)
--- NOTE | 2024-05-19 06:17 | PC.NURSE ---
Patient lethargic, opens eyes to voice, oriented to self only, occasionally yells out but much less than yesterday. Minimal movement. Refused to eat or drink anything. BG at HS = 80, at 0230 = 91. D5NS infusing at 75ml/hr. Respirations 24, some use of accessory muscles. Prior to drsg change Patient medicated for pain with Hydromorphone 0.5mg IV. Patient tolerated procedure. All drsgs to coccyx, buttocks, anf hips changed at 2240. Areas cleaned, Swabbed with Betadine, dried, and Allevyn drsgs applied. Some of the wounds had bailey and serosang drainage.
[2024-05-19 06:25] LABS: Add Manual Diff / Slide Review NO; Basophils Absolute Auto 0 /uL (0-100); Eosinophils Absolute Auto 0 /uL (0-450); Lymphocytes Absolute Auto 1000 /uL (1100-4500); Lymphocytes Percent Auto 26.4 % (25-40); Mean Corpuscular HGB Conc 35.5 % (30-36); Mean Corpuscular Hemoglobin 33.4 PG (26-34); Mean Corpuscular Volume 94.3 fL (80-100); Monocytes Absolute Auto 200 /uL (0-900); Monocytes Percent Auto 6.2 % (3-14); Neutrophils Absolute Auto 2500 /uL (1500-7000); Neutrophils Percent Auto 65.4 % (50-75); Platelet Count 145 X10^3/uL (150-400); Red Blood Cell Count 1.95 X10^6/uL (4.5-5.9); Red Cell Distribution Width 14.4 % (11.6-14.8); White Blood Cell Count 3.9 X10^3/uL (4.5-11.0)
[2024-05-19 06:26] LABS: Hematocrit 18.4 % (41-53); Hemoglobin 6.5 g/dL (13.5-17.5)
[2024-05-19 06:34] LABS: Magnesium 1.5 mg/dL (1.6-2.3)
[2024-05-19 06:35] LABS: BUN Creatinine Ratio 8.3 (6-22); Blood Urea Nitrogen 4 mg/dL (9-20); Calcium 6.8 mg/dL (8.4-10.2); Carbon Dioxide 19 mmol/L (22-32); Chloride 105 mmol/L (98-107); Estimated Glomerular Filt Rate > 60 mL/min (>60); Glucose 96 mg/dL (80-110); Phosphorous 1.4 mg/dL (2.3-3.7); Potassium 3.2 mmol/L (3.4-5.1); Sodium 129 mmol/L (137-145)
[2024-05-19 06:36] LABS: HEMOLYSIS 125 (0-50)
[2024-05-19] MEDS: DEXTROSE 5%-0.9% NS 1,000 ML 75 ML IV (06:59)
--- NOTE | 2024-05-19 08:11 | PC.NURSE ---
Day shift: Dr Olvera made aware (at approx 0745) of Pt's respirations increasing and the use of accessory muscles. Also made aware that Pt is not responding to any verbal commands or questions. Pt does appear comfortable at this time. Call light in reach and bed alarm is on.
[2024-05-19 08:53] LABS: HEMOLYSIS < 15 (0-50); Iron 81 ug/dL (49-181)
[2024-05-19 08:59] LABS: Reticulocyte Count, Percent 0.8 % (0.9-2.6)
[2024-05-19 09:04] LABS: Percent Iron Saturation 77 % (20-50); Total Iron Binding Capacity 105 ug/dL (261-462); Transferrin < 80 mg/dL (206-381)
[2024-05-19] MEDS: PANTOPRAZOLE 40 MG VIAL IV ×2 (09:52→21:16)
[2024-05-19] MEDS: ENOXAPARIN 40 MG/0.4 ML SYRINGE SUBCUT (09:52)
--- NOTE | 2024-05-19 10:14 | DI.MRI.S_ITS ---
PROCEDURE: MR HEAD/BRAIN WO CON INDICATIONS: stroke, dysphagia, sudden decrease mentatation [sic] TECHNIQUE: Non-contrast axial T1 spin echo, axial T2 fast spin echo, sagittal and axial FLAIR, coronal T2 fast spin echo, axial gradient echo, axial diffusion and ADC through the brain. COMPARISON: [facility], CT, CT HEAD/BRAIN WO CON, 05/15/2024, 7:36. FINDINGS: Image quality: This examination is limited by involuntary motion artifact. CSF spaces: Ventricles appear symmetric in size and shape. Basal cisterns are patent. No extra-axial fluid collections. Brain: Along the posterior aspect of the left temporal lobe and the left occipital lobe, there is a broad area of abnormal diffusion-weighted signal, with associated dark signal on the ADC maps. Additional areas of abnormal scattered diffusion-weighted signal can be seen throughout both cerebral hemispheres, which are more prominent posteriorly anteriorly. Associated developing T2 weighted signal can be seen at these sites. No intracranial bleeds or mass effects. There is cerebral volume loss for age. There are periventricular and deep white matter chronic small vessel ischemic changes. Brainstem appears normal. No chronic ischemic insults. Normal intravascular flow voids are present. Skull and face: Calvarial bone marrow is normal in signal. Orbits are normal. Sinuses: Sinuses and mastoids are clear. IMPRESSION: There is a subacute infarction of the posterior aspect of the left MCA territory. Additional scattered areas of subacute infarction can be seen elsewhere within the brain, which are most prominent posteriorly. Dictated by: Cash Thakkar M.D. on 05/19/2024 at 14:57 Approved by: Cash Thakkar M.D. on 05/19/2024 at 15:01
[2024-05-19] MEDS: HYDROMORPHONE 0.5 MG INJ IV ×3 (11:12→15:46)
[2024-05-19] MEDS: MAGNESIUM SULFATE 2 GM/50 ML PIGGYBACK IV (11:42)
[2024-05-19] MEDS: POTASSIUM PHOSPHATE 45 MMOL in SODIUM CHLORIDE 0.9% 500 ML 85.833 MMOL IV (11:45)
--- NOTE | 2024-05-19 14:08 | DIET.CONS ---
Dietary Consultation Note Admission Date: 05/15/2024 08:27 Assessment: RD f/u Awaiting goals of care. Per hospitalist - ordered MRI. Will have goals of care conversation based on MRI results. Will consider tube feeds if within goals of care. Pt with no significant oral intakes during stay despite oral nutrition supplementation. Dextrose was started. Current rate (75 ml/hr of Dextrose 5%-.9% Ns) providing 92 g dextrose per 24 hours. Phos, Mg, and K+ low this morning. Ht: 170.18 cm Wt: 53.524 kg BMI: 18.4 Last BM: 05/19/24 (05/19/24 04:00) MNA: 7 Flakito Score: 11 Diet: 05/15/24 Lunch General (Regular) Diet Diet Modifications: Nutrition Percent Meal Consumed 25% 05/17/24 18:00 Labs: RBC 1.95 X10^6/uL (4.5-5.9) L 05/19/24 05:54 Hgb 6.5 g/dL (13.5-17.5) L* 05/19/24 05:54 Hct 18.4 % (41-53) L* 05/19/24 05:54 Creatinine 0.48 mg/dL (0.66-1.25) L 05/19/24 05:54 Lactate 2.0 mmol/L (0.7-2.1) 05/15/24 03:25 Iron 81 ug/dL (49-181) 05/19/24 08:17 % Saturation 77 % (20-50) H 05/19/24 08:17 Ferritin 152 ng/mL (18-464) 05/15/24 03:46 Nutrition Diagnosis: 1. Severe Acute Protein Calorie Malnutrition r/t increased nutrient needs (protein) for healing and decreased oral intake in setting of pain as evidenced by multiple unstageable pressure ulcers, <50% of estimated energy needs for 2 weeks per diet recall (severe) and BMI underweight for age (18.4, severe) Interventions: If tube feeds within goals of care- recommend the followin. Supplement phos, K+ and Mg per pharmacy protocol before starting tube feeds. 2. Supplement 100 mg thiamine before starting tube feeds. Recc supplement 100 mg/d of thiamine for next 5-7 days. 3. Initiate Jevity 1.2 at 10 ml/hr and advance as tolerated by 10 ml/hr every 12 hours until goal rate of 60 ml/hr. 4. Monitor phos, Mg, K+ and glucose BID for first 3 days. Will adjust tube feed rates accordingly. Pt high risk refeeding syndrome. Goal rate of enteral nutrition provides 1728 kcals and 80 g protein. Formula at goal rate provides 1,164 ml water. Flush feeds Q4H with 60 mL fluids. Fluids needs are 1800 mL (30 ml/kg vs MULTIGRAPH OPERATOR 1mL/kcal estimated energy needs). EER: 7843-3524 kcals (35 kcals/kg per BMI) 80-95 g protein (1.5-1.7 g/kg per wounds) Monitoring/Evaluations: goals of care Electronically Signed by: Violet Church 05/19/24 14:08 Clinical Dietitian [address] [address]
[2024-05-19] MEDS: LORazepam 2 MG/ML INJ 0.5 MG IV (14:15)
--- NOTE | 2024-05-19 14:52 | PC.NURSE ---
Day shift: Off unit for MRI at approx 1445. Off tele and ICU aware. SL as well. Tolerated blood infusion without issue. Completed at approx 1450.
--- NOTE | 2024-05-19 15:13 | PC.NURSE ---
Day shift: Back in room from MRI at approx 1510. Looks comfortable at this time. Plan is a bed bath, brief change, recheck skin, and dressings at this time. Pt with 3 family members in room at this time. 1 of them is Son.
--- NOTE | 2024-05-19 16:20 | PC.NURSE ---
Day shift: Pt with a black colored loose stool at approx 1530. All dressings changed and Betadine applied per MD orders. He tolerated well. All wound areas are covered with new dressings at approx 1600. Pt repositioned and is currently sleeping (1624).
--- NOTE | 2024-05-19 17:30 | PM.PN.1 ---
Subjective Subjective Interval history: Summary: 69-year-old man who has not seen a primary care provider since the was brought by paramedics to the emergency department due to complaint of painful sores on his buttocks and lower back. Being treated for UTI and infected pressure ulcer. MRI today given lack of improvement showed a subacute L MCA infarct as well as multiple other small strokes. Discussed this with patient's son at bedside, as patient is more alert today but still unable to really swallow or stay awake. We discussed that he will not likely be able to recover to the point of swallowing based on the available information thus far, and that if he were to the chances of this appear to be quite low. I do not think a short trial of NG tube at this time would provide meaningful results, and that if he wants artificial nutrition we should plan on eventual PEG placement. This may be delayed as today the patient had worsened anemia and dark / melenotic stools. He was started on PPI. Given 1U PRBC, and will have follow up h/h this evening. My recommendation based on his presenting statements were to consider hospice and to focus on comfort. He was not yet ready to make this decision yet, and will sleep on it. Exam Vital Signs (past 8 hours): - 05/19/24 12:00 05/19/24 12:08 05/19/24 12:24 Temperature 97.7 F 98.4 F 98.6 F Pulse Rate 89 91 H 87 Respiratory Rate 20 18 18 Blood Pressure 119/66 119/61 110/62 Pulse Oximetry 99 Oxygen Flow Rate 0 05/19/24 14:45 05/19/24 16:00 Temperature 98.1 F 97.4 F L Pulse Rate 83 74 Respiratory Rate 16 20 Blood Pressure 124/67 Pulse Oximetry 98 Oxygen Flow Rate 0 Oxygen Delivery Method Room Air Oxygen Flow Rate 0 Narrative Exam Narrative: Cachectic, chronically ill appearing, slightly more alert today but no comprehensible speech CV: RRR no m/r/g Pulm diminished breath sounds b/l lung bases Abd S NT ND Ext: no edema Objective Labs 05/19/24 05:54 05/19/24 05:54 Labs: Laboratory Results - last 24 hr 05/19/24 05/19/24 05:54 08:17 WBC 3.9 L RBC 1.95 L Hgb 6.5 L* Hct 18.4 L* MCV 94.3 MCH 33.4 MCHC 35.5 RDW 14.4 Plt Count 145 L Neut % (Auto) 65.4 Lymph % (Auto) 26.4 [place] % (Auto) 6.2 Eos % (Auto) 1.0 L Baso % (Auto) 1.0 Neut # (Auto) 2500 Lymph # (Auto) 1000 L [place] # (Auto) 200 Eos # (Auto) 0 Baso # (Auto) 0 Percent Retic 0.8 L Sodium 129 L Potassium 3.2 L Chloride 105 Carbon Dioxide 19 L BUN 4 L Creatinine 0.48 L Estimated GFR > 60 BUN/Creatinine Ratio 8.3 Glucose 96 Calcium 6.8 L Phosphorus 1.4 L Magnesium 1.5 L Iron 81 TIBC 105 L % Saturation 77 H Transferrin < 80 L Blood Type O Positive Antibody Screen Negative Crossmatch See Detail [facility] Social History household members: children Smoking Status: Former smoker Assessment & Plan Assessment & Plan narrative: 1. Sacral and gluteal ulcerations, likely due to pressure from bed-bound status. Present on admission and active. 2. Subacute L MCA CVA 3. Severe lower extremity weakness, muscle wasting, multiple vertebral compression fractures, and contractures. 4. Elevated troponin, ruled out myocardial infarction. Present on admission and improved. 5. Sepsis with acute metabolic encephalopathy, thrombocytopenia secondary to Acute cystitis and possible infected pressure ulcers. Present on admission and improving. 6. Dehydration, hypotension due to volume depletion. Present on admission and improved. 7 Severe protein calorie malnutrition. Advanced general diet. Consult dietary. 8. Depression. Address pending medical stabilization. Consider antidepressant therapy and behavioral health follow-up. 9. Acute blood loss anemia, likely upper GI bleeding in the setting of anemia of chronic disease. Plan: - Wound culture with pseudomonas, increased zosyn to 4.5 q6 for now. Urine culture with klebsiella only resistant to ampicillin will be treated effectively with treatment for pseudomonas. - change fluid with decreased PO intake and hypoglycemia to d5 NS (hyponatremic as well). Na is slightly lower today, will continue to monitor for now but glucose is improved. - Hg to 6.5 this AM with dark stools, given 1U PRBC, repeat h/h pending. Will continue to trend. Follow up on goals of care tomorrow morning before persuing possible endoscopy. Continue IV PPI BID started this AM. - discussed with family today regarding patient's poor prognosis. I encouraged hospice at this time given his multiple acute and likely chronic medical issues and poor chance for recovery along with his presenting statements. Son to sleep on this overnight, will return in the morning for further discussions. Hold on NG tube at this time unless going to plan for PEG in the near future. Continue D5 NS for now. Monitor for refeeding syndrome with daily Phos, CMP, Mg, CBC. - unclear if encephalopathy today due to hypoglycemia or evidence of worsening infection or subacute L MCA stroke. -seen by wound care, appreciate recommendations with plan for outpatient follow up if discharged and not on hospice. Patient is admitted inpatient status as he will require at least 2 midnights of inpatient level care. DVT prophylaxis: Lovenox. Code status: Full code. His son is his surrogate caregiver. APS referral pending given home situation. Discussions of goals of care are ongoing as noted above. Time-Based Coding :: [TOTAL MINUTES] spent with patient and on the chart (including review of chart, obtaining history, exam, reviewing outside data, placing orders, documenting exam and treatment plan, and counseling patient) on [DATE]. Quality VTE Deep Vein Thrombosis/Pulmonary Embolism Present on Admission: No
[2024-05-19 18:04] LABS: Hematocrit 22.4 % (41-53); Hemoglobin 7.7 g/dL (13.5-17.5)
[2024-05-20] VITALS: BP 105/59; PULSE 75; RESP 24; TEMP 36.6; O2SAT 99
[2024-05-20] MEDS: LORazepam 2 MG/ML INJ 0.5 MG IV ×2 (02:45→06:25)
[2024-05-20] MEDS: HYDROMORPHONE 0.5 MG INJ IV ×2 (02:58→05:29)
[2024-05-20] MEDS: PIPERACILLIN/TAZO 4.5 GM in SODIUM CHLORIDE 0.9% 100 ML IV ×2 (02:59→11:18)
[2024-05-20 04:00] VITALS: BP 115/66; PULSE 79; RESP 26; TEMP 36.6; O2SAT 100
[2024-05-20] MEDS: DEXTROSE 5%-0.9% NS 1,000 ML 75 ML IV (04:10)
--- NOTE | 2024-05-20 06:02 | PC.NURSE ---
Pt with black loose stool, dressings changed as needed per MD order.
[2024-05-20 06:34] LABS: Add Manual Diff / Slide Review NO; Basophils Absolute Auto 0 /uL (0-100); Basophils Percent Auto 1.1 % (0-2); Eosinophils Absolute Auto 0 /uL (0-450); Eosinophils Percent Auto 1.2 % (2-4); Hematocrit 23.5 % (41-53); Hemoglobin 8.2 g/dL (13.5-17.5); Lymphocytes Absolute Auto 700 /uL (1100-4500); Lymphocytes Percent Auto 18.2 % (25-40); Mean Corpuscular HGB Conc 34.9 % (30-36); Mean Corpuscular Hemoglobin 31.3 PG (26-34); Mean Corpuscular Volume 89.7 fL (80-100); Monocytes Absolute Auto 100 /uL (0-900); Monocytes Percent Auto 3.9 % (3-14); Neutrophils Absolute Auto 2800 /uL (1500-7000); Neutrophils Percent Auto 75.6 % (50-75); Platelet Count 96 X10^3/uL (150-400); Red Blood Cell Count 2.62 X10^6/uL (4.5-5.9); Red Cell Distribution Width 17.1 % (11.6-14.8); White Blood Cell Count 3.7 X10^3/uL (4.5-11.0)
[2024-05-20 06:53] LABS: Phosphorous 2.2 mg/dL (2.3-3.7)
[2024-05-20 06:56] LABS: BUN Creatinine Ratio 6.5 (6-22); Blood Urea Nitrogen 3 mg/dL (9-20); Calcium 6.5 mg/dL (8.4-10.2); Carbon Dioxide 24 mmol/L (22-32); Chloride 103 mmol/L (98-107); Estimated Glomerular Filt Rate > 60 mL/min (>60); Glucose 94 mg/dL (80-110); HEMOLYSIS < 15 (0-50); Magnesium 1.7 mg/dL (1.6-2.3); Potassium 2.8 mmol/L (3.4-5.1); Sodium 130 mmol/L (137-145)
[2024-05-20 08:00] VITALS: BP 110/65; PULSE 85; RESP 20; TEMP 36.2; O2SAT 100
--- NOTE | 2024-05-20 08:17 | CM.DPNOTE ---
DCP Cont Reviewed chart. MRI has confirmed subacute L MCA infarct as well as multiple other small strokes. In addition, patient with worsened anemia and dark stools. Patient struggling to stay awake, poor swallow. Prognosis is guarded. Dr Olvera completed goals of care conversation with son yesterday; recommendation is to consider hospice at this time. Son is considering. [facility] continues to follow for pending admission. Discharge planning on hold- plan of care is still unfolding. CM team following clinical course closely . ALICE
[2024-05-20] MEDS: PANTOPRAZOLE 40 MG VIAL IV ×2 (08:39→20:42)
[2024-05-20] MEDS: ENOXAPARIN 40 MG/0.4 ML SYRINGE SUBCUT (08:39)
[2024-05-20 10:09] VITALS: RESP 18
[2024-05-20] MEDS: POTASSIUM PHOSPHATE 15 MMOL in SODIUM CHLORIDE 0.9% 250 ML 127.5 MMOL IV (10:31)
[2024-05-20] MEDS: MORPHINE 10 MG/0.5 ML ORAL SYRINGE SL ×4 (11:10→22:04)
--- NOTE | 2024-05-20 11:43 | PM.PN.1 ---
Subjective Subjective Interval history: Summary: 69-year-old man who has not seen a primary care provider since the was brought by paramedics to the emergency department due to complaint of painful sores on his buttocks and lower back. Being treated for UTI and infected pressure ulcer. MRI on 05/19 given lack of improvement showed a subacute L MCA infarct as well as multiple other small strokes. Discussed this with patient's son at bedside, as patient is more alert today but still unable to really swallow. He continues to have difficulty with speech and cognition. We discussed that he will not likely be able to recover to the point of swallowing based on the available information thus far, and that if he were to the chances of this appear to be quite low. I do not think a short trial of NG tube at this time would provide meaningful results, and that if he wants artificial nutrition we should plan on eventual PEG placement. After thinking on this overnight and discussion with other family, son elects to proceed with DNR and comfort focused care at this time. Will stop labs and antibiotics at this time. Exam Vital Signs (past 8 hours): - 05/20/24 04:00 05/20/24 08:00 Temperature 97.9 F 97.1 F L Pulse Rate 79 85 Respiratory Rate 26 H 20 Blood Pressure 115/66 110/65 Pulse Oximetry 100 100 Oxygen Flow Rate 0 0 Oxygen Delivery Method Room Air Oxygen Flow Rate 0 Narrative Exam Narrative: Cachectic, chronically ill appearing, slightly more alert today, more comprehensible speech. CV: RRR no m/r/g Pulm diminished breath sounds b/l lung bases Abd S NT ND Ext: no edema Objective Labs 05/20/24 06:17 05/20/24 06:17 Labs: Laboratory Results - last 24 hr 05/19/24 05/19/24 05/20/24 08:17 17:50 06:17 WBC 3.7 L RBC 2.62 L Hgb 7.7 L 8.2 L Hct 22.4 L 23.5 L MCV 89.7 D MCH 31.3 MCHC 34.9 RDW 17.1 H Plt Count 96 L Neut % (Auto) 75.6 H Lymph % (Auto) 18.2 L [place] % (Auto) 3.9 Eos % (Auto) 1.2 L Baso % (Auto) 1.1 Neut # (Auto) 2800 Lymph # (Auto) 700 L [place] # (Auto) 100 Eos # (Auto) 0 Baso # (Auto) 0 Sodium 130 L Potassium 2.8 L Chloride 103 Carbon Dioxide 24 BUN 3 L Creatinine 0.46 L Estimated GFR > 60 BUN/Creatinine Ratio 6.5 Glucose 94 Calcium 6.5 L Phosphorus 2.2 L Magnesium 1.7 Blood Type O Positive Antibody Screen Negative Crossmatch See Detail [facility] Social History household members: children Smoking Status: Former smoker Assessment & Plan Assessment & Plan narrative: 1. Sacral and gluteal ulcerations, likely due to pressure from bed-bound status. Present on admission and active. 2. Subacute L MCA CVA 3. Severe lower extremity weakness, muscle wasting, multiple vertebral compression fractures, and contractures. 4. Elevated troponin, ruled out myocardial infarction. Present on admission and improved. 5. Sepsis with acute metabolic encephalopathy, thrombocytopenia secondary to Acute cystitis and possible infected pressure ulcers. Present on admission and improving. 6. Dehydration, hypotension due to volume depletion. Present on admission and improved. 7 Severe protein calorie malnutrition. Advanced general diet. Consult dietary. 8. Depression. Address pending medical stabilization. Consider antidepressant therapy and behavioral health follow-up. 9. Acute blood loss anemia, likely upper GI bleeding in the setting of anemia of chronic disease. Plan: - Wound culture with pseudomonas, increased zosyn to 4.5 q6. Will stop IV antibiotics on 05/20 given transition to comfort focused care. Urine culture with klebsiella only resistant to ampicillin and was likely treated with treatment for pseudomonas. - developed hypoglycemia with no PO intake, improved with D5 infusion. However with transition to comfort focused care will stop IV fluids today. - Hg to 6.5 on 05/01 with dark stools, given 1U PRBC with adequate response. Will stop trending now but continue PPI for comfort at this time. No further h/h given comfort focused care. - discussed with family today regarding patient's poor prognosis. I encouraged hospice at this time given his multiple acute and likely chronic medical issues and poor chance for recovery along with his presenting statements. Son wanted to sleep on this overnight but this morning was in agreement that comfort focused care is what the patient would have wanted. Patient continues to only as for pain medications currently. - unclear if encephalopathy today due to hypoglycemia or evidence of worsening infection or subacute L MCA stroke, likely multifactorial. -seen by wound care, appreciate recommendations but with plan for hospice no need for outpatient follow up. -added scopalamine patch 05/20 with SL morphine. Can have a diet with known aspiration risk if patient desires. Patient is admitted inpatient status as he will require at least 2 midnights of inpatient level care. DVT prophylaxis: Lovenox. Code status: Changed to DNR. Comfort focused care. Will need to see with adequate pain control how patient appears over the course of today, case management to work on possible hospice arrangements. Time-Based Coding :: [TOTAL MINUTES] spent with patient and on the chart (including review of chart, obtaining history, exam, reviewing outside data, placing orders, documenting exam and treatment plan, and counseling patient) on [DATE]. Quality VTE Deep Vein Thrombosis/Pulmonary Embolism Present on Admission: No
--- NOTE | 2024-05-20 13:55 | CM.DPC ---
DCP Cont Patient's son Antony has decided on comfort care. Updated Tila at [facility]; according to [facility]- Patient has NETTIE SO1 which provides NETTIE coverage to people who receive SSI. In order for patient to use his NETTIE for SNF [facility] would need to be contacted. Alternatively patient would need to pay privately for SNF which would be $485 per day with a one month deposit of $14,550. Met w/patient's son Antony and one of his grandchildren at bedside, patient sleepy and cannot participate; reviewed discharge plan options. Son has decided to take patient home and would like a referral to [facility]. Son explains that he will be the primary caregiver with multiple family members expected to come in/out for visits. BING Gandhi, kindly agreed to send referral to [facility]. Placed call and had to LM. Updated provider, updated Tila at [facility]. Plan: If patient survives this hospitalization, anticipate return home w/family, [facility], via BLS to transport home. CM team following closely. ALICE
--- NOTE | 2024-05-20 16:51 | PC.NURSE ---
Pt resting quietly T/O day, Family in room Pt now DNR/comfort care. Med w/ Morphine SL for discomfort w/good relief. SL LFA D/C'd SL RAC & RFA intact. Call light w/in reach, bed alarm on for pt safety. COntinue w/ plan of care.
[2024-05-20 20:00] VITALS: BP 137/76; PULSE 96; RESP 13; TEMP 36.4; O2SAT 100
[2024-05-21] MEDS: MORPHINE 10 MG/0.5 ML ORAL SYRINGE SL ×6 (00:56→23:37)
[2024-05-21] MEDS: LORazepam 2 MG/ML INJ 0.5 MG IV ×3 (06:33→23:21)
[2024-05-21] MEDS: HYDROMORPHONE 0.5 MG INJ IV (07:49)
[2024-05-21] MEDS: PANTOPRAZOLE 40 MG VIAL IV ×2 (07:49→21:37)
[2024-05-21 08:00] VITALS: PULSE 97; RESP 20; TEMP 36.6; O2SAT 98
--- NOTE | 2024-05-21 09:38 | P.PN_ITS ---
Subjective Subjective Interval history: 69-year-old man with no medical care in decades who was admitted w/infected pressure injuries, UTI, subacute L MCA infarct and multiple other small CVAs. He transitioned to comfort care yesterday. Patient complains of some abdominal pain this morning. He also complains of being thirsty. However, when I attempted both an oral swab and to give him a sip of water through a straw, he became very upset. Exam Vital Signs (past 8 hours): Oxygen Delivery Method Room Air Oxygen Flow Rate 0 Narrative Exam Narrative: GEN: Alert and oriented x 1-2, cachectic, ill-appearing HEENT:NC, Face symmetric CHEST: Respiratory excursions symmetric, CTAB CV: Mildly tachycardic with regular rhythm, no M/R/G ABD: Soft, diffusely tender/ND, scaphoid abdomen, BT present in all 4 quadrants, no organomegaly or masses EXTR: warm, well perfused, no C/C/E, significant contractures noted SKIN: warm and dry, no rash NEURO: Alert and oriented x 1-2 Objective Labs 05/20/24 06:17 05/20/24 06:17 Labs: Laboratory Results - last 24 hr 05/20/24 06:17 WBC 3.7 L RBC 2.62 L Hgb 8.2 L Hct 23.5 L MCV 89.7 D MCH 31.3 MCHC 34.9 RDW 17.1 H Plt Count 96 L Neut % (Auto) 75.6 H Lymph % (Auto) 18.2 L [place] % (Auto) 3.9 Eos % (Auto) 1.2 L Baso % (Auto) 1.1 Neut # (Auto) 2800 Lymph # (Auto) 700 L [place] # (Auto) 100 Eos # (Auto) 0 Baso # (Auto) 0 Sodium 130 L Potassium 2.8 L Chloride 103 Carbon Dioxide 24 BUN 3 L Creatinine 0.46 L Estimated GFR > 60 BUN/Creatinine Ratio 6.5 Glucose 94 Calcium 6.5 L Phosphorus 2.2 L Magnesium 1.7 PFSH Social History household members: children Smoking Status: Former smoker Assessment & Plan Assessment & Plan narrative: 1. Sacral and gluteal PIs 2. Subacute L MCA CVA 3. Severe debility and contractures 4. Severe PCM 5. Sepsis with acute metabolic encephalopathy, thrombocytopenia secondary to acute cystitis and possible infected pressure ulcers. 6. Dehydration, hypotension due to volume depletion. 7. Compression fxs 8. Depression. 9. Acute blood loss anemia, likely upper GI bleeding in the setting of anemia of chronic disease. Patient remains on comfort care status. He received 0.5 mg of lorazepam over the past 24 hours and 60 mg of morphine. Hospice referral is pending. Await coordination of admission with [facility] the [place]. Anticipate discharge home with son when they are able to admit him. Time-Based Coding :: [TOTAL MINUTES] spent with patient and on the chart (including review of chart, obtaining history, exam, reviewing outside data, placing orders, documenting exam and treatment plan, and counseling patient) on [DATE]. Quality VTE Deep Vein Thrombosis/Pulmonary Embolism Present on Admission: No
--- NOTE | 2024-05-21 15:01 | CM.DPC ---
DCP Hospice Planning: SW called [facility] and they confirm they received the referral and will review and SW provided son Antony Kearney Jr contact info. Return call from Aliya at [facility] and she confirms Info Visit completed and son in agreement and pt's desire is to be home and DME will be ordered in the AM for delivery Thu morning to the house and then their RN can do SOC 05/23 between [id number]. BLS form completed due to contractures, non healed compression fx, pressure ulcers, subacute infarct and documentation attached. POLST will be needed for transport Thursday. Plan: SW to call [facility] tomorrow Sun to schedule BLS transport home 05/23 around 1300 to be home in time for [facility] to start [id number]. STEPHEN Farris
--- NOTE | 2024-05-21 16:38 | PC.NURSE ---
Pt resting at intervals T/O day. Med w/ MS as per orders for pain w/good reelief. Repositioned frequently. Pt w/ contractures of the legs. F/C patent Family in rom. Call light w/in reach, bed alarm on for pt safety. COntinue w/plan of care.
[2024-05-22] MEDS: HYDROMORPHONE 0.5 MG INJ IV ×2 (00:16→09:16)
[2024-05-22 08:00] VITALS: BP 103/58; PULSE 87; RESP 23; TEMP 36.4; O2SAT 98
[2024-05-22] MEDS: MORPHINE 10 MG/0.5 ML ORAL SYRINGE SL ×2 (09:10→10:31)
[2024-05-22] MEDS: PANTOPRAZOLE 40 MG VIAL IV ×2 (10:31→20:57)
--- NOTE | 2024-05-22 13:26 | PM.PN.1 ---
Subjective Subjective Interval history: 69-year-old man with no medical care in decades who was admitted w/infected pressure injuries, UTI, subacute L MCA infarct and multiple other small CVAs. He transitioned to comfort care 05/20/24. Patient received 40 mg of morphine in the last 24 hours. He is also received 0.5 mg of hydromorphone x3 doses. He received 3 doses of lorazepam 0.5 mg IV as well. He complains of ongoing abdominal pain. His RN notes he received both morphine and hydromorphone on 20 minutes prior to my evaluation. When asked if he would like his medication scheduled so he does not have ask for it, he quickly agreed. Exam Vital Signs (past 8 hours): Oxygen Delivery Method Room Air Oxygen Flow Rate 0 Narrative Exam Narrative: GEN: Alert and oriented x 1-2, cachectic, ill-appearing HEENT:NC, Face symmetric CHEST: Respiratory excursions symmetric, CTAB CV: Regular rate and rhythm, no M/R/G ABD: Soft, diffusely tender/ND, scaphoid abdomen, BT present in all 4 quadrants, no organomegaly or masses EXTR: warm, well perfused, no C/C/E, significant contractures noted SKIN: warm and dry, no rash NEURO: Alert and oriented x 1-2 Objective Labs 05/20/24 06:17 05/20/24 06:17 [facility] Social History household members: children Smoking Status: Former smoker Assessment & Plan Assessment & Plan narrative: 1. Sacral and gluteal PIs, present on admission 2. Subacute L MCA CVA, present on admission 3. Severe debility and contractures, present on admission 4. Severe PCM, present on admission 5. Sepsis with acute metabolic encephalopathy, thrombocytopenia secondary to acute cystitis and possible infected pressure ulcers. 6. Dehydration, hypotension due to volume depletion. 7. Compression fxs, present on admission 8. Depression. 9. Acute blood loss anemia, likely upper GI bleeding in the setting of anemia of chronic disease. Patient remains on comfort care. We will schedule morphine 15 mg orally q.4 hours. Will also add lorazepam 0.5 mg q.4 hours scheduled to help relieve his pain from contractures. Continue as needed morphine and lorazepam as well. [facility] [place] will be able to admit him tomorrow afternoon. Patient is a DNR but does not have a signed POLST form. I did complete and signed it. Await signature from his son who is serving as his POA. Anticipate transfer home via nonemergent ambulance tomorrow. Time-Based Coding :: [TOTAL MINUTES] spent with patient and on the chart (including review of chart, obtaining history, exam, reviewing outside data, placing orders, documenting exam and treatment plan, and counseling patient) on [DATE]. Quality VTE Deep Vein Thrombosis/Pulmonary Embolism Present on Admission: No
[2024-05-22] MEDS: MORPHINE 10 MG/0.5 ML ORAL SYRINGE 15 MG PO ×3 (14:12→20:56)
--- NOTE | 2024-05-22 14:52 | CM.DPC ---
DCP HOme with Hospice FRED spoke to Aliya at [facility] and Info Visit with son Antony Posadas completed and DME ordered for delivery tomorrow Mon AM and their RN can still do SOC in the home tomorrow 05/23 between [id number]. [facility]ED called [facility] and scheduled BLS transport for pt tomorrow 05/23 at 1300 to be home in time for Hospice at 1400. BLS form shows contractures, non healed compression fx, non healed sacral ulcers, severe pain on movement. Per RN, pt continues not to eat or drink at this time and getting comfort pain meds and SW observed pt able to open eyes and answer questions briefly. FRED requested POLST to be completed by MD and son Antony today but Antony Posadas stayed overnight and left early this morning and pt too weak to hold pen currently but appears A&O x3. FRED called son Antony Posadas and confirmed he plans to remain home in the morning for Hospice DME delivery and then will stay home for BLS transport of the pt home and aware of time for outside property agent. FRED updated RN. FRED called APS assigned gaming investigator Fletcher Mclaughlin [phone] and left detailed vm about plan of d/c home tomorrow with Hospice. Plan: Patient to d/c home tomorrow 05/23 via [facility] at 1300 and [facility] to open in the home at 1400. STEPHEN Farris
[2024-05-22] MEDS: LORazepam 2 MG/ML ORAL SOL 0.5 MG PO ×2 (17:17→20:56)
[2024-05-22 19:00] VITALS: BP 108/65; PULSE 89; RESP 18; TEMP 36.8; O2SAT 100
[2024-05-23] MEDS: MORPHINE 10 MG/0.5 ML ORAL SYRINGE 15 MG PO ×4 (00:21→12:27)
[2024-05-23] MEDS: LORazepam 2 MG/ML ORAL SOL 0.5 MG PO ×4 (00:22→12:28)
[2024-05-23] MEDS: PANTOPRAZOLE 40 MG VIAL IV (08:45)
[2024-05-23] MEDS: SODIUM CHLORIDE 0.9% FLUSH 10 ML IV (08:46)
--- NOTE | 2024-05-23 10:26 | P.DS_ITS ---
History of Present Illness History of Present Illness Date Patient Seen: 05/23/24 Chief complaint: painful bedsores Narrative: From H&P: 69-year-old man who has not seen a primary care provider since the was brought by paramedics to the emergency department due to complaint of painful sores on his buttocks and lower back. He states he has not gotten out of bed for several months due to chronic arthritic pain, and is cared for by his son who helps with position changes and getting him up to have bowel movements and urinate. He has been drinking fluid but eaten little for the past few days. He has told his son that he wishes to to and wishes to be left alone. He does not take any medications, denies alcohol, tobacco or drug use. Per the emergency department report EMS stated that the house was dirty in disarray. Discharge Providers Provider Date of admission: 05/15/24 08:27 Discharge Date: 05/23/24 Consults: 05/15/24 01:29 Consult to [facility] [place] - Associate Material Handler Stat Comment: Associate Material Handler Consult needed for:: Unable to care for self Comment: APS referral 05/15/24 11:05 Consult to Dietitian, Adult Routine Comment: Thursday Reason For Exam: sacral decubitus Consult to Inpatient Wound Care Nurse Routine Comment: Reason for consultation: sacral decubitus Has provider been notified: No Consult to Wound Care Routine Comment: Consulting Provider: [facility] 05/17/24 10:14 Consult to Occupational Therapy Evaluate & Treat Comment: Physician Instructions: Evaluate and treat Consult to Physical Therapy Evaluate & Treat Comment: Physician Instructions: Evaluate and Treat 05/20/24 10:09 Consult to Discharge Planning Routine Comment: Discharge provider: Anselmo Bruce MD Summary Hospital Course Discharge Diagnosis: 1. Sacral and gluteal PIs, present on admission 2. Subacute L MCA CVA, present on admission 3. Severe debility and contractures, present on admission 4. Severe PCM, present on admission 5. Sepsis with acute metabolic encephalopathy, thrombocytopenia secondary to acute cystitis and possible infected pressure ulcers. 6. Dehydration, hypotension due to volume depletion. 7. Compression fxs, present on admission 8. Depression. 9. Acute blood loss anemia, likely upper GI bleeding in the setting of anemia of chronic disease. Hospital Course: He was initially admitted admitted with cachexia and skin wounds. The patient has chronic muscle wasting. He was initially treated for urinary tract infection and skin ulcers. Ultimately he decided he was like to pursue hospice. This happened after having dark stools and anemia and receiving 1 unit of blood. Ultimately he was change towards comfort based measures and arrangements were made for hospice at home. He was stable for discharge on hospice on May 23 and returned to his home by BLS ambulance. Status at Discharge Cognitive/behavioral status at discharge: confused Functional status at discharge: bed bound Overall status at discharge: patient is not back to baseline Time Spent with Patient Time spent: Greater than 30 minutes Exam Vital Signs (past 8 hours): Oxygen Delivery Method Room Air Oxygen Flow Rate 0 Narrative Exam Narrative: Somnolent with slurred speech. He was very cachectic, and chronically ill in appearance. Lungs are clear, normal rate and effort. Heart is regular, no murmur gallop or rub. Abdomen is soft, non distended. Extremities are free of edema. severe skin issues on back and bottom, none needed debridement. Contractures of both arms and legs. Objective ECG Impression: Undetermined rhythm, due to significant baseline artifact Rightward axis Inferior infarct , age undetermined Imaging Multiple studies:: Radiologist's impression: Brain MRI: There is a subacute infarction of the posterior aspect of the left MCA territory. Additional scattered areas of subacute infarction can be seen elsewhere within the brain, which are most prominent posteriorly. Echo: The left ventricular cavity is small. The ejection fraction is estimated to be 60-65%. There has been no significant change since the previous exam. The interventricular septum is flattened, consistent with a right ventricular pressure/volume condition. The right ventricle is moderately dilated. Right ventricular systolic function is moderately reduced. Right ventricular systolic pressure is estimated to be 26 mmHg plus the clinically estimated CVP which cannot be estimated on this exam. The left atrium grossly appears normal in size. The aortic root is normal size. No significant valvular heart disease. Since 10/30/2012, there is a significant increased in size of RV chamber and RV systolic function has significantlyh decreased. Consider PE evaluation if not yet completed. Head CT: 1. CT head without acute intracranial abnormalities or acute calvarial fractures. 2. Age-related senescent changes and sequela of chronic small vessel ischemic disease. Chest CTA: No pulmonary embolus. Tree-in-bud type opacity can be seen involving the lung bases, left worse than right. Chronic infection is suspected. Chest x-ray: Clear lungs. Abdomen and pelvis CT: Focal soft tissue inflammatory change seen adjacent to the sacrum as well as adjacent to the left ischial tuberosity. No soft tissue gas or abscess is seen at this time. No cristóbal findings of osteomyelitis. Labs 05/20/24 06:17 05/20/24 06:17 [facility] Social History household members: children Smoking Status: Former smoker Discharge Assessment & Plan Assessment and Plan Assessment: 1. Sacral and gluteal PIs, present on admission 2. Subacute L MCA CVA, present on admission 3. Severe debility and contractures, present on admission 4. Severe PCM, present on admission 5. Sepsis with acute metabolic encephalopathy, thrombocytopenia secondary to acute cystitis and possible infected pressure ulcers. 6. Dehydration, hypotension due to volume depletion. 7. Compression fxs, present on admission 8. Depression. 9. Acute blood loss anemia, likely upper GI bleeding in the setting of anemia of chronic disease. Plan of Treatment: Transfer home by [facility] ambulance for hospice at home. Discharge Plan Discharge Plan Patient Disposition: Hospice - Home Provider Discharge Comment: DC Home via nonemergent ambulance w/[facility] hosp[facility] services Discharge orders & Medications Prescriptions: New lorazepam [Lorazepam Intensol] 2 mg/mL Concentrate 0.5 mg PO Q1HR PRN (Reason: Anxiety) Qty: 30 0RF morphine concentrate 10 mg/0.5 mL Syringe 10 mg sublingual Q1H PRN (Reason: Pain, Mild (1-3)) Qty: 100 0RF Discharge Health Status Multidrug resistant organism: No MDRO Diet/Activity/Treatments Diet: Diet as Tolerated Activity: Bed rest Catheter: 2-way Lock Catheter comment: Continue lock catheter for end of life/comfort care Oxygen: N/A Visit Report/Discharge Packet Instructions: End of Life Care Stand Alone Forms: Patient Portal/API Quality VTE Deep Vein Thrombosis/Pulmonary Embolism Present on Admission: No
--- NOTE | 2024-05-23 10:43 | CM.DPNOTE ---
DCP note CHECK TOTALER reviewed EMR CHECK TOTALER spoke with arthur Hardy via phone. P [phone] in agreement with pt dc today via BLS with [facility] (expressed verbal understanding there may be a bill associated with BLS transport) at 1300 and [facility] to open at 1400. likely will get DME at 1000 today. Arthur Hardy verbally signed POLST CC form, unable to come in in person due to waiting for DME delivery. CHECK TOTALER answered questions to best of ability. CHECK TOTALER placed POLST and BLS forms in chart. Updated provider/RN. From Aliya at [facility], cleared for dc today, only need signed dc sum at dc. CC Oksana kindly agreed to send when available. APS scientific investigator Fletcher Mclaughlin previously updated on plan P [phone]. P: dc today vis BLS at 1300 and [facility] to open at 1400 in the home. CM team will continue to follow as needed STEPHEN Wright
--- NOTE | 2024-05-23 14:56 | PC.NURSE ---
PATIENT PICKED UP BY [facility] FOR TRANSPORT TO HOME, WITH PLAN FOR HIS SON TO BE WAITING AT HOME. Patient's niece is at bedside and states he has several family members there to help move him into his bed. IV was removed intact. Rudolph in place draining darker yellow urine. Patient's allevyn dressings intact. Hospice has been arranged for intact at 1400 per case management today.
== END 2024-05-23 13:25 | disposition hospice, home (50) | DRG 871 ==
LOC: ED 01:38 → AC 08:27
PROVIDERS: Hospitalist; Internal Medicine; Admitting Provider Internal Medicine; Emergency Provider Emergency Medicine; Referring Provider Emergency Medicine; Visit Provider Internal Medicine
DX: A41.9 Sepsis, unspecified organism (principal); E43 Unspecified severe protein-calorie malnutrition; G93.41 Metabolic encephalopathy; I63.9 Cerebral infarction, unspecified; Z68.1 Body mass index [BMI] 19.9 or less, adult; M48.54XA Collapsed vertebra, not elsewhere classified, thoracic region, initial encounter for fracture; M48.56XA Collapsed vertebra, not elsewhere classified, lumbar region, initial encounter for fracture; N30.00 Acute cystitis without hematuria; Z16.11 Resistance to penicillins; E87.1 Hypo-osmolality and hyponatremia; K92.1 Melena; D62 Acute posthemorrhagic anemia; L89.150 Pressure ulcer of sacral region, unstageable; M24.542 Contracture, left hand; M24.541 Contracture, right hand; M62.50 Muscle wasting and atrophy, not elsewhere classified, unspecified site; R79.89 Other specified abnormal findings of blood chemistry; E86.0 Dehydration; F32.A Depression, unspecified; D63.8 Anemia in other chronic diseases classified elsewhere; L89.320 Pressure ulcer of left buttock, unstageable; L89.310 Pressure ulcer of right buttock, unstageable; L89.210 Pressure ulcer of right hip, unstageable; L89.890 Pressure ulcer of other site, unstageable; R53.81 Other malaise; E16.2 Hypoglycemia, unspecified; D69.6 Thrombocytopenia, unspecified; B96.5 Pseudomonas (aeruginosa) (mallei) (pseudomallei) as the cause of diseases classified elsewhere; B96.1 Klebsiella pneumoniae [K. pneumoniae] as the cause of diseases classified elsewhere; R33.9 Retention of urine, unspecified; R13.10 Dysphagia, unspecified; M24.59 Contracture, other specified joint; Z51.5 Encounter for palliative care; Z66 Do not resuscitate; Z87.891 Personal history of nicotine dependence; Z59.89 Other problems related to housing and economic circumstances
CPT/HCPCS: 36415; 36430; 70450; 70551; 71045; 71275; 74177; 80048; 80053; 80202; 81001; 81003; 82550; 82607; 82728; 82746; 82962; 83540; 83550; 83605; 83735; 84100; 84132; 84134; 84145; 84153; 84443; 84484; 85014; 85018; 85025; 85045; 85730; 86850; 86900; 86901; 87040; 87070; 87077; 87086; 87186; 87205; 93005; 93010; 93306; 96361; 96365; 96366; 96367; 96375; 97162; 97166; 97530; 99233; 99284; 99291; P9016; J1171; J1644; J1650; J2060; J2405; J2470; J2543; J3010; J3475; J7050; Q9967